=== PATIENT | male | born 1965 | race Caucasian/White ===

== ENCOUNTER → 2020-09-11 14:34 | Outpatient (CLI) | payer OTHER, SELFPAY ==
[2020-09-11 15:01] LABS: COVID19 -Nasal RAPID Negative (Negative)
== END ==
PROVIDERS: Visit Provider Student in an Organized Health Care Education/Training Program
DX: Z01.812 Encounter for preprocedural laboratory examination (principal); Z20.822 Contact with and (suspected) exposure to COVID-19
CPT/HCPCS: 87635

== ENCOUNTER 2020-09-14 09:43 | Day surgery (SDC) | payer OTHER, SELFPAY ==
[2020-09-07 08:01] VITALS: BMI 29.7
[2020-09-14] VITALS (20 sets, daily range): BP systolic 113–185; BP diastolic 62–111; PULSE 54–96; RESP 14–20; TEMP 35.4–36.9; O2SAT 90–100; BMI 29.7
[2020-09-14] MEDS: LACTATED RINGERS 1,000 ML 42 ML IV ×2 (10:25→13:29)
--- NOTE | 2020-09-14 10:42 | PM.PREOP ---
Pre-operative Note COVID-19 COVID-19 status: Negative Result date/Date tested (Pos, Neg/Pending): 09/12/20 Interval Note History & Physical reviewed/Exam performed by Physician: Yes Changes to H&P: No
[2020-09-14] MEDS: CEFAZOLIN 2 GM/100 ML FROZ.PIGGY IV ×2 (10:50→18:32)
--- NOTE | 2020-09-14 11:24 | SUR.OPER ---
Supine, head on gel donut. Arms padded with gel pads, tucked at sides, draw sheet secured with 2 towel clips at lower chest level. Towel roll between shoulders vertically, tape placed from shoulders to foot of bed. Silk tape to patients forehead to bed to secure patients head. Safety belt at thigh. Legs uncrossed, pillow under knees, gel pad under heels. Tape secured over lower leg
--- NOTE | 2020-09-14 13:45 | DI.RAD.S_ITS ---
PROCEDURE: XR CERVICAL SPINE 2V OR 3V INDICATIONS: C5-6. C6-7 ACDF TECHNIQUE: 3 view(s) of the cervical spine were acquired. COMPARISON: None. FINDINGS: 3 spot fluoroscopic intraoperative images demonstrating ACDF from the level of C5-C6 and C6-C7. Expected intraoperative alignment. Interbody cage grafts also noted. Dictated by: Bart Strauss M.D. on 09/14/2020 at 14:02 Approved by: Bart Strauss M.D. on 09/14/2020 at 14:03
[2020-09-14] MEDS: BUPIVACAINE 0.25% W/ EPI (PF) 10 ML VIAL 20 ML INJ (13:46)
--- NOTE | 2020-09-14 13:58 | PM.OP.1 ---
Operative Date/Time/Diagnoses Date of procedure: 09/14/20 Time of procedure: 10:38 Pre-op diagnosis: 1. C5-6, C6-7 spinal stenosis 2. C5-6, C6-7 spondylosis with radiculopathy Post-op diagnosis: same Procedure & Clinicians Procedure: 1. C5-6 C6-7 anterior cervical diskectomy and fusion 2. C5-6 C6-7 anterior interbody cage placement 3. C5-6 C6-7 anterior instrumentation with plate and screw placement in C5-C6 and C7 vertebrae 4. Utilization of microsurgical technique and operating microscope Same procedure as scheduled: Yes Indications: Patient has been having chronic neck pain and worsening cervical radiculopathy. Patient failed multiple conservative management with worsening pain weakness and numbness in her upper extremity. Patient has been having difficulty performing activity of daily living. After discussing risks benefits of treatment options, patient elected proceed with surgery. Surgeon: Jonathon Monson Papeterie Table Assembler: Beto Oates Click Yes if Unassisted: No Anesthesia Type: General Operative Notes Closure Type: primary Specimen(s): none sent Prosthetic devices, grafts, tissues, transplants, or devices: Globus extend plate, PEEK cages Applied: catheter Estimated Blood Loss (mL): 25 Blood products transfused: none Procedure in detail: Patient was seen in the preoperative area. Risks and benefits of the surgery was discussed with the patient. Operative consent was obtained and placed in the chart. Patient was then taken to the operative room. Prophylactic antibiotic was given less than 0.5 hr prior to skin incision. General anesthesia was administered. Patient was placed into a supine position on her radiolucent table. Bilateral shoulders were taped down to allow proper C-arm imaging. Anterior cervical area was prepped and draped in a sterile fashion. Time-out was performed at this time. Using lateral C-arm imaging, the level between C5 and C7 was identified and marked on patient's neck. A oblique incision from midline towards medial border of sternocleidomastoid muscle was made. The platysma muscle was incised in line with skin incision. Metzenbaum scissor was used to develop the plane between the medial border of sternocleidomastoid d and the strap muscles medially. The carotid sheath and its contents were identified and protected behind the hand-held retractor during the entire case. The plane between the carotid sheath and strap muscles was developed with Metzenbaum scissors. Dissection was made down to the level of the anterior cervical fascia. Longus colli muscle was incised on the anterior aspect of vertebral bodies bilaterally from C5-C7. Spinal needle was placed into the C5-6 disc space and confirmed with lateral C-arm imaging. Using microsurgical technique and operative microscope, anterior cervical diskectomy was performed at C5-6 and C6-7 level. This was done by removing the disc material, removing the anterior and posterior osteophytes posterior longitudinal ligaments along with performing bilateral foraminotomies at both levels. Patient was found to have severe central and foraminal stenosis at both levels. Patient's stenosis was fully decompressed after decompression was completed. After the diskectomy was completed, 2 anterior interbody cages were obtained. The cages were packed with globus via cell bone grafting material. One cage each along with the bone grafting material was then packed into the interbody spaces from C5-C7 with one cage into each interbody level. After the cages were placed, the anterior cervical plate was stabilized to the C5-C7 vertebrae using 2 screws at each each level. Total 6 screws were placed. After confirming placement of the hardware with AP and lateral C-arm imaging, the screws were locked into the plate using the locking mechanism and torque limiting screwdriver. After the hardware was placed and confirmed with AP and lateral C-arm imaging, the wound was irrigated with sterile normal saline. The platysma muscle and the subcutaneous tissue was closed with 2-0 Vicryl. The skin was closed with 4-0Monocryl and Steri-Strips. Patient tolerated the procedure well. Patient was transferred recovery room in stable condition. There were no complications. Complications: none Post-operative Condition: stable Disposition: PACU Plan for aftercare: Admit to inpatient hospital
--- NOTE | 2020-09-14 14:07 | SUR.PHASEI ---
Pt arrived with oral airway, diaphoretic, Dr. Roy stated this way normal for him..
[2020-09-14] MEDS: ALBUTEROL 2.5 MG/3 ML NEB (ADULT) INH (14:23)
--- NOTE | 2020-09-14 14:52 | SUR.PHASEI ---
Addendum entered by Kezia Wakefield R.N. 09/14/20 15:09: Blood gasabout to be attempted and pt spontaneously awoke, Dr. Titus returned to bedside, ok for blood gas not to be drawn as pt now awake. Original Note: RT treatment given for expiratory wheezing, wheezing resolved, pt not wakeful despite name calling and sternal rub, Dr. Titus called to bedside, ABG ordered, RT called and obtained blld.
[2020-09-14] MEDS: fentaNYL 100 MCG/2 ML INJ IV (15:07)
[2020-09-14] MEDS: OXYCODONE/ACETAMINOPHEN 5/325 TABLET 1 TAB PO ×2 (15:18→15:41)
--- NOTE | 2020-09-14 16:08 | SUR.PHASEI ---
Late entry: Once awake pt c/o pain to neck and shoulder areas. Medicated with fentanyl and percocet. Pt tolerated applesauce and water. Lungs remained clear with no more wheezes. Pt transported up to room 220 on nasal cannula 02 at 3/l. Pt left in stable condition, with CHASE Cherry. Bed down, locked SCD's on and call donis in reach.
[2020-09-14] MEDS: SODIUM CHLORIDE 0.9% 1,000 ML 100 ML IV (17:36)
--- NOTE | 2020-09-14 19:21 | PC.ADMIT ---
[address] [facility] [address] Admission Note: The patient,Kennedy Gan,55 y/o, was given written information regarding hospital policies, unit procedures and contact persons. Patient's smoking status: Former smoker. Vital Signs - 8 hr 09/14/20 13:58 09/14/20 14:03 09/14/20 14:08 Temperature 97.6 F Pulse Rate 74 73 73 Respiratory Rate 20 20 17 Blood Pressure 172/74 H 157/73 H 148/79 H Pulse Oximetry 93 90 L 90 L 09/14/20 14:14 09/14/20 14:23 09/14/20 14:28 Temperature 97.4 F L Pulse Rate 71 70 70 Respiratory Rate 18 16 15 Blood Pressure 157/77 H 143/83 H 154/92 H Pulse Oximetry 91 94 93 09/14/20 14:33 09/14/20 14:48 09/14/20 14:58 Temperature 97.2 F L Pulse Rate 68 72 96 H Respiratory Rate 16 16 15 Blood Pressure 152/88 H 160/77 H 167/105 H Pulse Oximetry 93 94 96 09/14/20 15:06 09/14/20 15:08 09/14/20 15:23 Temperature Pulse Rate 82 79 Respiratory Rate 17 18 Blood Pressure 161/99 H 185/89 H Pulse Oximetry 98 93 93 09/14/20 15:35 09/14/20 15:50 09/14/20 16:20 Temperature 97.8 F 97.0 F L 96.0 F L Pulse Rate 77 73 85 Respiratory Rate 18 16 16 Blood Pressure 169/89 H 159/102 H 144/84 H Pulse Oximetry 96 97 99 09/14/20 16:50 09/14/20 17:50 09/14/20 18:50 Temperature 95.7 F L 96.6 F L 96.8 F L Pulse Rate 54 L 75 60 Respiratory Rate 18 16 16 Blood Pressure 141/84 H 146/111 H 136/78 Pulse Oximetry [address] Gastelum admitted from PACU to arrived 1550. Patient drowsy but A/Ox4. Patient is on 3L O2 NC and has a soft cervical collar on. Original surgical dressing in place, C/D/I. CMS intact, positive distal pulses, good strength in BLE and BUE. Patient reports pain only with movement. Patient has been educated on log rolling and no heavy lifting. Patient able to swallow without difficulty. Patient's belongings in room, oriented to call light system.
[2020-09-14] MEDS: MAG HYDROX/ALUM/SIMETH 30 ML UDC PO (19:33)
[2020-09-14] MEDS: SENNOSIDES 8.6 MG TABLET 17.2 MG PO (20:22)
[2020-09-14] MEDS: DOCUSATE 100 MG CAPSULE PO (20:22)
[2020-09-14] MEDS: OXYCODONE IR 5 MG TABLET PO (20:22)
[2020-09-15] MEDS: OXYCODONE IR 5 MG TABLET PO ×3 (00:41→12:45)
[2020-09-15] MEDS: hydrOXYzine pamoate 25 MG CAPSULE PO ×2 (00:41→07:37)
[2020-09-15] MEDS: MAG HYDROX/ALUM/SIMETH 30 ML UDC PO (00:44)
--- NOTE | 2020-09-15 01:10 | PC.NURSE ---
Addendum entered by Citlali Gordon R.N. 09/15/20 03:30: again complaining of heartburn; states he should have taken my Prilosec yesterday morning. Has pantoprazole ordered for this a.m. at 0600 so given early per patient request. Addendum entered by Citlali Gordon R.N. 09/15/20 01:15: Does have some chronic tingling in both hands but states has improved since surgery. Original Note: patient is alert and oriented but using profanity when speaking about his pain stating oh fuck. Breath sounds CTA but is on oxygen at 1L/min per NC with sat of 97%; left on oxygen because he has sleep apnea and does not use a CPAP related to claustrophobia. Has intermittent harsh sounding non productive cough. Denies nausea but has heartburn so medicated with Maalox. BT present and is passing flatus. Voiding in toilet or using urinal; denies dysuria but reports chronic urgency but no incontinence. Is able to turn himself in bed. Up to bathroom with SBA and just slightly unsteady on feet initially. Dressing to anterior neck is CDI; wearing soft collar for comfort. Does state his throat is sort and he has had some difficulty with swallowing. Medicated with Oxycodone for 6/10 incisional pain and no noted coughing with drinking water; declines offer of ice pack. Wearing bilateral foot SCD's. Fall risk score is moderate and bed alarm is activated.
[2020-09-15] MEDS: CEFAZOLIN 2 GM/100 ML FROZ.PIGGY IV (02:49)
[2020-09-15] MEDS: PANTOPRAZOLE DR 20 MG TABLET PO (03:15)
[2020-09-15] MEDS: SODIUM CHLORIDE 0.9% 1,000 ML 100 ML IV (03:17)
[2020-09-15 03:22] VITALS: BP 141/92; PULSE 66; RESP 18; TEMP 36.8; O2SAT 96
[2020-09-15 07:22] VITALS: BP 127/78; PULSE 69; RESP 20; TEMP 37.1; O2SAT 97
[2020-09-15] MEDS: ACETAMINOPHEN 325 MG TABLET 650 MG PO (07:37)
--- NOTE | 2020-09-15 08:39 | OT.IP.EVAL ---
Current Diagnoses Other spondylosis with radiculopathy, cervical region (09/14/20) Spinal stenosis, cervical region (09/14/20) Surgery Performed Operation Date: 09/14/20 12:15 Actual Procedures p C5-6,C6-7 ACDF with anterior instrumentation - Jonathon Monson MD Past Medical History (Last Updated 09/07/20 @ 09:05 by Lynn Tinoco, RN) Depression HTN (hypertension) BEBETO (obstructive sleep apnea) Surgical History (Last Updated 09/07/20 @ 08:06 by Lynn Tinoco RN) Hx of appendectomy Hx of hernia repair Occupational Therapy Inpatient Evaluation/Re-Eval M1 PT/OT-IP Prior Functional Status Start: 09/15/20 08:41 Freq: NEEDED Status: Active Protocol: Document 09/15/20 08:41 [facility] (Rec: 09/15/20 08:58 [facility] [id number]) Medical Review Prior Functional Status Communication Independent Mobility and Gait Independent with no devices Activities of Daily Living and IADL's Completely with all ADL's , IADL's, and working as an recreational tech. Social History Household Members spouse Living Arrangements House Number of Floors (Floors) Two Floors Number of Stairs To Enter/Railing? 18 steps with left hand rail. Home Environment Standard Height Toilet,Tub/ Shower Home Equipment Shower Seat with Backrest,Hand Held Shower M2 OT-IP Current Condition Start: 09/15/20 08:41 Freq: Status: Active Protocol: Document 09/15/20 08:41 [facility] (Rec: 09/15/20 08:58 [facility] [id number]) Occupational Therapy Current Condition Current Condition Evaluation Date 09/15/20 Treatment Diagnosis Spinal stenosis, s/p C5-6, C6- 7 ACDF Post Operative Precautions Cervical Spine Precautions Soft Collar for Comfort,No Heavy Lifting,Log Roll M3 OT- IP Subjective and Pain Start: 09/15/20 08:41 Freq: Status: Active Protocol: Document 09/15/20 08:41 [facility] (Rec: 09/15/20 08:58 [facility] [id number]) OT- Subjective Occupational Therapy Visit Type Type Initial Evaluation Visit Start Time 08:25 Visit Stop Time 08:39 Total Visit Minutes 14 Occupational Therapy Visit Comments Patient Comments Pt agreed to get up. Patient/Caregiver Goals TO go home. OT Pain Assessment Pain When Pain Assessed At Rest Pain Present Pain Present Pain Reported Location neck Intensity 2 Scale Used Numeric (0 - 10) M4 OT- IP ADL's Start: 09/15/20 08:41 Freq: Status: Active Protocol: Document 09/15/20 08:41 [facility] (Rec: 09/15/20 08:58 [facility] [id number]) OT [id number] Comments OT Self-Feeding Comments Information given regarding swallowing after cervical sx, pt able to state good understanding. OT ADL-Grooming General Evaluation Grooming Ability Independent OT ADL-Oral Care General Eval Oral Care Ability Independent Comments Oral Care Comments Pt able to lean at his hips to spit into the sink. OT ADL-Dressing General Eval Lower Body Dressing Ability Standby Assistance Comments OT Dressing Comments Pt able to yanet/doff socks while seated. Pt able to independently readjust his soft neck collar. OT ADL-Toileting Comments OT Toileting Comments Pt has been independently using the toilet in the room. Educated pt to be mindful of his head positioning during hygiene needs. OT ADL-Bathing Comments OT Bathing Comments NOt performed. Pt states has a shower chair with back at home. M5 OT- IP IADL's Start: 09/15/20 08:41 Freq: Status: Active Protocol: Document 09/15/20 08:41 [facility] (Rec: 09/15/20 08:58 [facility] [id number]) OT-Instrumental Activities of Daily Living Home Safety Awareness Awareness of Need for Assistance at Home Good Awareness Ability to Problem Solve Emergency Able to Problem Solve Situations Medication Management Medication Management No Deficits Identified Money Management Money Management No Deficits Identified Meal Preparation Meal Preparation Comments to assist as needed. Program Manager Slp Program Manager Slp Comments to assist as needed. M6 OT- IP Functional Cognition Start: 09/15/20 08:41 Freq: Status: Active Protocol: Document 09/15/20 08:41 [facility] (Rec: 09/15/20 08:58 [facility] [id number]) Cognitive Factors Limiting Selfcare Function Cognitive Ability Level of Alertness Alert Patient Orientation Name,Age,Birthday,Month,Date, Year,Day of Week,Place, Situation Attention Span Ability Capable of Focused Attention, Capable of Sustained Attention Ability to Follow Commands Able to Follow Multi-Step Commands Memory Description No Deficits Noted Safety Awareness No Deficits Noted Problem Solving Ability No deficits Noted Executive Function Ability No Deficits Noted Cognitive Comments Cognitive Assessment Comments Pt appears intact with no cognitive deficits noted on OT eval. OT- Vision and Hearing OT- Hearing Assessment OT- Hearing Assessment WFL OT- Vision Assessment Visual Acuity Glasses For Reading M7 OT- IP Mobility and Balance Start: 09/15/20 08:41 Freq: Status: Active Protocol: Document 09/15/20 08:41 [facility] (Rec: 09/15/20 08:58 [facility] [id number]) OT- Bed Mobility Assessment Rolling Type of Rolling Roll to Left Supine to Sit Supine to Sit Assist Independent Sit to Supine Sit to Supine Assist Independent OT-Transfer Assessment Sit to and From Stand Sit to and from Stand Independent Transfers Transfer Ability Independent Technique Transfer Destination Bed,Chair Devices Transfer Assistive Devices None Comments Mobility Comments Pt independent in the room for all mobility needs. Pt states to be sleeping initially in the recliner at home as prior sleeps on the floor. OT- Balance Assessment Sitting Balance and Reactions Static Sitting Balance Ability Normal Dynamic Sitting Balance Ability Normal Standing Balance and Reactions Static Standing Balance Ability Normal Dynamic Standing Balance Ability Good M8 OT- IP Objective Assessments Start: 09/15/20 08:41 Freq: Status: Active Protocol: Document 09/15/20 08:41 [facility] (Rec: 09/15/20 08:58 [facility] [id number]) OT Gross Range of Motion Upper Extremity Range of Motion Assessment Within Functional Limits OT Strength Upper Extremity Strength Assessment Within Functional Limits OT-Muscle Tone Assessment Muscle Tone WNL Yes M9 OT- IP Assessment and Plan Start: 09/15/20 08:41 Freq: Status: Active Protocol: Document 09/15/20 08:41 [facility] (Rec: 09/15/20 08:58 [facility] [id number]) OT Summary Assessment and Plan Potential Rehabilitation Potential Excellent Analytic Complexity at Evaluation Low Summary OT Impairments Pain,Bathing Progress Towards Goals Progressing Toward Goals Assessment Summary Pt low complexity and doing well and able to follow all cervical precautions. Pt has to assist at home, step son a few miles away and friends to check on him daily. Pt looking to go home today. Goals Dressing Goal Independent Bathing Goal Independent Shower Transfer Goal Independent Days to Meet Goals 1 Frequency of Treatment Frequency Of Treatment Once a Day Treatment Plan OT Treatment Plan ADL Training,Functional Mobility,Patient/Family Education,Discharge Planning Other Treatment Recommendations and Next shower if still here Treatment Focus Discharge Recommendations OT Discharge Recommendations Home with Assistance Transportation Needs at Discharge Private Vehicle
[2020-09-15 08:58] VITALS: BP 157/99; PULSE 66; RESP 17; O2SAT 99
[2020-09-15 09:09] VITALS: BP 157/99; PULSE 66
[2020-09-15] MEDS: DOCUSATE 100 MG CAPSULE PO (09:09)
[2020-09-15] MEDS: FLUoxetine 20 MG CAPSULE PO (09:09)
[2020-09-15] MEDS: LOSARTAN 50 MG TABLET PO (09:09)
--- NOTE | 2020-09-15 09:10 | PT.IIE ---
Current Diagnoses Other spondylosis with radiculopathy, cervical region (09/14/20) Spinal stenosis, cervical region (09/14/20) Surgery Performed Operation Date: 09/14/20 12:15 Actual Procedures p C5-6,C6-7 ACDF with anterior instrumentation - Jonathon Monson MD Surgical History (Last Reviewed 09/15/20 @ 12:13 by Lwarence Johnson PA-C) Hx of appendectomy Hx of hernia repair Medical History (Last Reviewed 09/15/20 @ 12:13 by Lawrence Johnson PA-C) Depression HTN (hypertension) BEBETO (obstructive sleep apnea) Physical Therapy Inpatient Evaluation/Re-Eval M1 PT/OT-IP Prior Functional Status Start: 09/15/20 08:41 Freq: NEEDED Status: Active Protocol: Document 09/15/20 09:10 AB (Rec: 09/15/20 12:33 AB [id number]) Medical Review Prior Functional Status Medical History Reviewed Yes Communication able to make needs known Mobility and Gait pt stated that he is independent with all mobilities and ambulation without AD Social History Household Members spouse Living Arrangements House Number of Floors (Floors) Two Floors Number of Stairs To Enter/Railing? 1 step to enter 18 steps with R rail to get to bedroom level Home Environment Standard Height Toilet,Tub/ Shower Home Equipment Shower Seat with Backrest,Hand Held Shower Employment Status [employer] Employed Additional Social History Comment works as a photo technician: stated that he will be off work for ~ 2 months pt stated that he sleeps on the floor M2 PT-IP Current Condition Start: 09/15/20 12:21 Freq: NEEDED Status: Active Protocol: Document 09/15/20 09:10 AB (Rec: 09/15/20 12:33 AB [id number]) Physical Therapy Current Condition Current Condition Evaluation Date 09/15/20 Treatment Diagnosis s/p C5-6 C6-7 ACDF; difficulty in walking Onset Date 09/14/20 Precautions Cervical Spine Precautions Soft Collar for Comfort,No Heavy Lifting,Log Roll M3 PT-IP Subjective Start: 09/15/20 12:21 Freq: NEEDED Status: Active Protocol: Document 09/15/20 09:10 AB (Rec: 09/15/20 12:33 AB [email or web address]) Subjective Physical Therapy Visit Type Type Initial Evaluation Visit Start Time 09:10 Visit Stop Time 09:25 Total Visit Minutes 15 Number of RESTAURANT LINE COOK Visits 0 Physical Therapy Visit Comments Patient Comments pt is agreeable to do PT Therapy Pain Assessment Pain When Pain Assessed At Rest Pain Present Pain Present Pain Reported Location neck Intensity 2 Scale Used Numeric (0 - 10) Pain Management Techniques Modification of Treatment, Timing of Activity with Medications M4 PT-IP Mobility and Gait Start: 09/15/20 12:21 Freq: NEEDED Status: Active Protocol: Document 09/15/20 09:10 AB (Rec: 09/15/20 12:33 AB [id number]) PT-Bed Mobility Assessment Rolling Type of Rolling Log Rolling Level of Assist Independent Supine to Sit Supine to Sit Independent Sit to Supine Sit to Supine Independent PT-Transfer Assessment Sit to and From Stand Sit to and from Stand Independent Equipment Transfer Assistive Device None,Gait Belt Transfers Transfer Destination Chair Transfer Technique Stand Step Pivot Transfer Ability Level of Assist Independent Comments Mobility Comments reviewed cervical precautions. pt completed sit to stand from chair independent and transferred to bed independent without AD. demonstrated log roll bed mobility independent . agreed to walk in the hallway and completed ~ 125 ft independent without LOB. completed asceding steps without rails SBA. attempted descending without AD but with LOB requiring pt to hold on to R rail descending. pt stated that it is due to him not being able to look down to the step. pt repeated stair climbing x 2 more sets with pt ascending without rails/AD SBA but required use of R rail for descending. pt has R rail at home to get to 2nd level but room and hold has 1 step to get in/out of the house and pt can hold on to side of door for descending down step. pt also stated that spouse can assist him. pt ambulated back to his room independent. pt stated that he has been using his soft collar for ~ 6 months and knows how to manage collar. left pt sitting on chair. call light and table within reach. Gait Assessment Gait Gait Assistance Required: Independent Distance (Feet) 125 Able to Maintain Weight Bearing Status Yes During Gait Assistive Devices Assistive Device None Orthotic/Prosthetic Devices or Brace: Yes Factors Limiting Gait Function Factors Limiting Gait Function Limited Range of Motion,Pain, Poor Balance Comments Gait Comments pls refer to mobiltiy section for details Stair Climbing Assessment Evaluation Level of Assist On Stairs Standby Assistance Devices Stair Climbing Assistive Devices Right Railing Technique/Endurance Stair Climbing Direction Ascend and Descend Stair Climbing Technique Step Over Step Number of Steps Climbed 3 Query Text: Stair Climbing Set # Repetitions (reps) 3 Comments Stair Climbing Comments pls refer to mobility section for details PT-Balance Assessment Sitting Balance and Reactions Static Sitting Balance Ability Good Dynamic Sitting Balance Ability Good Standing Balance and Reactions Static Standing Balance Ability Good Dynamic Standing Balance Ability Good Device Used without AD M5 PT-IP Objective Assessments Start: 09/15/20 12:21 Freq: NEEDED Status: Active Protocol: Document 09/15/20 09:10 AB (Rec: 09/15/20 12:33 AB [id number]) Orientation Orientation/Cognition Level of Alertness Alert Orientation Name,Age,Birthday,Month,Date, Year,Day of Week,Place, Situation Language Function Ability No Deficits Noted Safety Awareness Understands Safety Issues Memory Description No Deficits Noted Gross Range of Motion Lower Extremity ROM Assessment Within Functional Limits Strength Lower Extremity Strength Assessment Within Functional Limits Coordination Assessment Gross Coordination Gross Coordination WNL Sensation Assessment Sensation Gross Sensation WNL M6 PT-IP Treatment Start: 09/15/20 12:21 Freq: NEEDED Status: Active Protocol: Document 09/15/20 09:10 AB (Rec: 09/15/20 12:33 AB [id number]) Physical Therapy Treatment Education Education Provided Precautions,Safety M7 PT-IP Assessment and Plan Start: 09/15/20 12:21 Freq: NEEDED Status: Active Protocol: Document 09/15/20 09:10 AB (Rec: 09/15/20 12:33 AB [id number]) PT Summary Assessment and Plan Potential Rehabilitation Potential Good Status of Condition at Evaluation Stable Summary Impairments Pain,ROM,Strength,Balance,Bed Mobility,Transfers,Gait, Activity Tolerance Assessment Summary pt us independent with bed mobility, transfers and ambulation without AD; requires SBA for stair climbing and pt will have his spouse to assist him at home. pt plans to go home today. pt may go home when medically stable. Goals Other Goals up/down 18 steps mod I using L rail ascending up/down 1 step without rails mod I Days to Meet Goals 3 Frequency of Treatment Frequency Of Treatment Twice a Day Treatment Plan Physical Therapy Treatment Plan Bed Mobility Training,Transfer Training,Gait Training, Therapeutic Exercise,Balance Retraining,Post Op Education, Discharge Planning,Hot or Cold Pack,Neuromuscular Re-ed, Coordination Retraining,Manual Therapy Precautions Cervical Spine Precautions Soft Collar for Comfort,No Heavy Lifting,Log Roll Recommendations To Nursing Amount of Assist Needed Standby Assistance Discharge Recommendations PT Discharge Recommendations Home with Assistance Transportation Needs at Discharge Private Vehicle
--- NOTE | 2020-09-15 10:31 | CM.DANOTE ---
DCP: Case received, EMR reviewed and met with patient. Introduced self and role. Was able to obtain information from patient regarding his baseline activity level prior to his surgery. DCP assessment completed with information currently available. Patient is a 55 year old male who admitted yesterday morning to the care of the orthopedic team. PCP: Dr. Mary Cruz. Payer: confirmed: [facility]. Patient came to the hospital via private vehicle for a surgical procedure. He had a cervical diskectomy/fusion secondary to history of spinal stenosis. According to notes and patient, he had sustained an injury at age 12 when he was active in gymnastics. He also exacerbated this when he lifted an [employer] awning. Met with patient in his room. He was sitting up in his chair with his neck brace, alert ad oriented. Patient resides in [place] with his spouse, Nathalie. He is independent at his baseline as far as activity and mobility. He is currently employed at [employer], and has been able to drive. P: DCP to continue to follow. He will be continuing to work with therapy team. Plan is for patient to go home when medically stable and cleared by Ana Gil RN/Quality Eng
[2020-09-15 11:34] VITALS: BP 144/78; PULSE 98; RESP 19; TEMP 36.6; O2SAT 98
--- NOTE | 2020-09-15 12:11 | PM.DS.1 ---
History of Present Illness History of Present Illness Date Patient Seen: 09/15/20 Time Patient Seen: 07:50 Chief complaint: *OPB* Cervical Fusion Anterior Narrative: Pain [id number]. No shortness of breath or chest pain. No nausea vomiting. No difficulty eating breakfast. Discharge Providers Provider Discharge Date: 09/15/20 Primary care physician: Doctor Noni MD Consults: 09/14/20 16:14 Consult to Occupational Therapy Evaluate & Treat Comment: Physician Instructions: Evaluate and treat Consult to Physical Therapy Evaluate & Treat Comment: Physician Instructions: Evaluate and Treat Discharge provider: Lawrence Johnson PA-C Summary Hospital Course Discharge Diagnosis: 1. C5-6, C6-7 spinal stenosis 2. C5-6, C6-7 spondylosis with radiculopathy Hospital Course: 1. C5-6 C6-7 anterior cervical diskectomy and fusion 2. C5-6 C6-7 anterior interbody cage placement 3. C5-6 C6-7 anterior instrumentation with plate and screw placement in C5-C6 and C7 vertebrae 4. Utilization of microsurgical technique and operating microscope Same procedure as scheduled: Yes Indications: Patient has been having chronic neck pain and worsening cervical radiculopathy. Patient failed multiple conservative management with worsening pain weakness and numbness in her upper extremity. Patient has been having difficulty performing activity of daily living. After discussing risks benefits of treatment options, patient elected proceed with surgery. Surgeon: Jonathon Monson Topography Technician: Beto Oates Click Yes if Unassisted: No Anesthesia Type: General Operative Notes Closure Type: primary Specimen(s): none sent Prosthetic devices, grafts, tissues, transplants, or devices: Globus extend plate, PEEK cages Applied: catheter Estimated Blood Loss (mL): 25 Blood products transfused: none Patient admitted to the hospital for the above-mentioned procedure. Patient consented to the same. Patient taken to the operating room underwent above-mentioned procedure on September 14, 2020. Patient back in his room and is in stable condition. Discharge home today in stable condition. Status at Discharge Cognitive/behavioral status at discharge: at baseline, oriented Functional status at discharge: independent ambulation Overall status at discharge: patient is progressing back to baseline Time Spent with Patient Time spent: Less than 30 minutes Exam Vital Signs (past 8 hours): - 09/15/20 07:22 09/15/20 08:58 09/15/20 09:09 Temperature 98.8 F Pulse Rate 69 66 66 Respiratory Rate 20 17 Blood Pressure 127/78 157/99 H 157/99 H Pulse Oximetry 97 99 09/15/20 11:34 Temperature 97.9 F Pulse Rate 98 H Respiratory Rate 19 Blood Pressure 144/78 H Pulse Oximetry 98 Oxygen Delivery Method Nasal Cannula Oxygen Flow Rate 0 Narrative Exam Narrative: Patient is sitting comfortably in bedside chair having breakfast. Neurovascular status is intact bilateral upper extremities. Dressing is Clean, dry, intact.. PFSH Medical History Depression HTN (hypertension) BEBETO (obstructive sleep apnea) Surgical History Hx of appendectomy Hx of hernia repair Social History household members: spouse Smoking Status: Former smoker alcohol intake: current Discharge Assessment & Plan Assessment and Plan Assessment: Patient progressing as expected. Plan of Treatment: Discharge home in stable condition. Discharge Plan Discharge Plan Patient Disposition: Home Discharge orders & Medications Discharge Orders: Discharge (Order); Ordered 09/15/20 Ordered By: Lawrence Johnson Prescriptions: New sennosides [senna] 8.6 mg Tablet 17.2 mg PO BEDTIME Qty: 20 RF: 0 acetaminophen 325 mg Tablet 650 mg PO Q6HR PRN (Reason: Pain, Mild (1-3)) Qty: 60 RF: 0 oxycodone 5 mg Tablet 5 mg PO Q3HR PRN (Reason: Pain, Moderate (4-6)) Qty: 60 RF: 0 Continued aspirin 81 mg Tablet,Delayed Release (Dr/Ec) 81 mg PO DAILY RF: 0 omeprazole 20 mg Capsule,Delayed Release(Dr/Ec) 20 mg PO DAILY RF: 0 fluoxetine 20 mg capsule 20 mg PO DAILY RF: 0 losartan 50 mg tablet 50 mg PO DAILY RF: 0 Follow up/Referrals: Jonathon Monson MD [Physician] - (2 weeks ) MisDoctor de la vega MD [Primary Care Provider] - Diet/Activity/Treatments Diet: Diet as Tolerated Activity: Limit bending, twisting, lifting Other treatments: Soft collar for comfort Skin/Wound/Dressing Care Report to your healthcare provider any signs of infection, such as:: chills, fever, increased pain, unusual drainage and unusual redness Dressing: Keep dressing clean and dry Visit Report/Discharge Packet Instructions: DI for Anterior Cervical Discectomy and Fusion Stand Alone Forms: Surgery Discharge Discharge Data Primary Care Provider: Miscellaneous,Doctor Attending Provider: Jonathon Monson
--- NOTE | 2020-09-15 13:02 | PC.NURSE ---
Pt A&Ox3. V.S.S. afebrile on RA. LS CTA, using IS getting max result. Soft collar in placed. Anterior neck dressing C/D/I.Reports pain controlled well with PRN oxycodone 5mg. Evaluated by PT, ambulating independently in room. MD at bedside this a.m. assessing patient and cleared for discharge home. Pt verbalizes understanding of activity restrictions, keeping dressing dry, scheduling a follow up appointment with ortho MD in 2 weeks, and medications. Pt is escorted by HAND STAP[employer]ER going via w/chair to private car driven by with all of his belongings.
== END 2020-09-15 13:08 | disposition home or self-care (01) ==
LOC: OR 09:52 → AC 09:53
PROVIDERS: Referring Provider Orthopaedic Surgery Orthopaedic Surgery of the Spine; Visit Provider Orthopaedic Surgery Orthopaedic Surgery of the Spine
PROC: (CPT 22551; principal; 2020-09-14 12:15)
DX: M48.02 Spinal stenosis, cervical region (principal); M47.22 Other spondylosis with radiculopathy, cervical region; M25.78 Osteophyte, vertebrae; G47.30 Sleep apnea, unspecified; I10 Essential (primary) hypertension; F32.9 Major depressive disorder, single episode, unspecified
CPT/HCPCS: 22551; 22853 ×2; 22552; 72040; 76000; 82962; 97161; 97165; C1776; J0690; J1100; J1170; J2250; J2405; J2704; J3010; J7613

== ENCOUNTER 2022-01-31 10:01 | Inpatient (IN) | payer OTHER, SELFPAY ==
[2020-09-14 16:19] VITALS: BMI 29.7
[2022-01-18 13:46] VITALS: BMI 28.1
[2022-01-31] VITALS (19 sets, daily range): BP systolic 135–188; BP diastolic 60–112; PULSE 53–88; RESP 9–20; TEMP 36.2–37.4; O2SAT 91–98; BMI 28.1
[2022-01-31 10:55] LABS: COVID19 -Nasal RAPID Negative (Negative)
--- NOTE | 2022-01-31 11:04 | PM.PREOP ---
Pre-operative Note COVID-19 COVID-19 status: Negative Result date/Date tested (Pos, Neg/Pending): 01/30/22 Criteria for continued procedure: Expected advancement of disease process, Possibility delay results in more complex future surgery or treatment, Increased loss of function, Continuing or worsening of significant or severe pain, Deterioration of the patient's condition or overall health and Delay expected to result in less-positive ultimate med/surg outcome Interval Note History & Physical reviewed/Exam performed by Physician: Yes Changes to H&P: No
[2022-01-31] MEDS: ACETAMINOPHEN 325 MG TABLET 975 MG PO (11:11)
[2022-01-31] MEDS: PREGABALIN 75 MG CAPSULE PO (11:11)
[2022-01-31] MEDS: LACTATED RINGERS 1,000 ML 42 ML IV ×2 (11:11→14:49)
[2022-01-31] MEDS: CEFAZOLIN 2 GM/100 ML PREMIX 100 ML IV ×2 (11:45→19:52)
[2022-01-31] MEDS: BUPIVACAINE LIPOSOME 266 MG/20 ML VIAL INJ (12:22)
[2022-01-31] MEDS: BUPIVACAINE 0.25% (PF) 30 ML, EPINEPHrine 0.3 MG INJ (12:22)
--- NOTE | 2022-01-31 12:30 | SUR.OPER ---
Supine, head on gel donut. Arms padded with gel pads, tucked at sides, towel roll under shoulders. Safety belt at thigh. Legs uncrossed.
--- NOTE | 2022-01-31 14:39 | PM.OP.1 ---
Operative Date/Time/Diagnoses Date of procedure: 01/31/22 Time of procedure: 12:00 Pre-op diagnosis: 1. C4-5, C7-T1 spinal stenosis with radiculopathy 2. History of C5-7 ACDF with retained hardware Post-op diagnosis: same Procedure & Clinicians Procedure: 1. C4-5, C7-T1 anterior cervical discectomy and fusion 2. C4-5, C7-T1 anterior interobody cage placement. 3. C5-7 anterior instrumentation removal with exploration of fusion 4. C4-T1 anterior instrumentation with plate and screw placement. 5. Utilization of microsurgical technique and operating microscope Same procedure as scheduled: Yes Indications: Patient has been having chronic neck pain and worsening cervical radiculopathy. 6 month. Patient had previous cervical fusion with some significant pain relief events and promotions assistant doing well until the last Patient failed multiple conservative management with worsening pain weakness and numbness in his upper extremity. Patient has been having difficulty performing activity of daily living. After discussing risks benefits of treatment options, patient elected proceed with surgery. Surgeon: Jonathon Monson Vibration Technician: Lawrence Johnson Click Yes if Unassisted: No Anesthesia Type: General Operative Notes Closure Type: primary Specimen(s): none sent Prosthetic devices, grafts, tissues, transplants, or devices: Globus Extend Plate and screws, Titanium cages Applied: catheter Estimated Blood Loss (mL): 10 Blood products transfused: none Procedure in detail: Patient was seen in the preoperative area. Risks and benefits of the surgery was discussed with the patient. Operative consent was obtained and placed in the chart. Patient was then taken to the operative room. Prophylactic antibiotic was given less than 0.5 hr prior to skin incision. General anesthesia was administered. Patient was placed into a supine position on her radiolucent table. Bilateral shoulders were taped down to allow proper C-arm imaging. Anterior cervical area was prepped and draped in a sterile fashion. Time-out was performed at this time. Using lateral C-arm imaging, the level between C4 and T1 was identified and marked on patient's neck. A oblique incision from midline towards medial border of sternocleidomastoid muscle was made. The platysma muscle was incised in line with skin incision. Metzenbaum scissor was used to develop the plane between the medial border of sternocleidomastoid d and the strap muscles medially. The carotid sheath and its contents were identified and protected behind the hand-held retractor during the entire case. The plane between the carotid sheath and strap muscles was developed with Metzenbaum scissors. Dissection was made down to the level of the anterior cervical fascia. Longus colli muscle was incised on the anterior aspect of vertebral bodies bilaterally from C4-T1. At this time the previously placed hardware rest exposed from C5-7. Screwdriver was used to unlock the screws from the plate. Screwdriver was then used to remove the screws from the vertebral bodies. All the screws had good purchase. After the screw was removed the plate was then removed from the anterior portion of vertebral bodies. The fusion bed was then inspected at this time. The fusion was solid at both C5-6 and C6-7 level. Using microsurgical technique and operative microscope, anterior cervical diskectomy was performed at C4-5 C7-T1 level. This was done by removing the disc material, removing the anterior and posterior osteophytes posterior longitudinal ligaments along with performing bilateral foraminotomies at both levels. Patient was found to have severe central and foraminal stenosis at both levels. Patient's stenosis was fully decompressed after decompression was completed. After the diskectomy was completed, two static anterior interbody cages were obtained. The cages were packed with DBM bone grafting material. One cage each along with the bone grafting material was then packed into the interbody spaces at C4-5, C7-T1 with one cage placed into the C4-5 level and one into the C7-T1 level. After the cages were placed, the anterior cervical plate was stabilized to the C4-T1 vertebrae using 2 screws at each each level. Total 10 screws were placed. After confirming placement of the hardware with AP and lateral C-arm imaging, the screws were locked into the plate using the locking mechanism and torque limiting screwdriver. After the hardware was placed and confirmed with AP and lateral C-arm imaging, the wound was irrigated with sterile normal saline. The platysma muscle and the subcutaneous tissue was closed with 2-0 Vicryl. The skin was closed with 4-0 Monocryl and Steri-Strips. A ELIDIA drain was placed deep to the platysma muscle and was sewn and through the skin. Patient tolerated the procedure well. Patient was transferred recovery room in stable condition. There were no complications. Neuro monitoring was used throughout the procedure and patient's neurologic status was stable throughout the entire procedure. Complications: none Post-operative Condition: stable Disposition: PACU Plan for aftercare: Admit to inpatient hospital
--- NOTE | 2022-01-31 14:56 | DI.RAD.S_ITS ---
PROCEDURE: XR CERVICAL SPINE 2V OR 3V INDICATIONS: C4-5, C7-T1 TECHNIQUE: 2 view(s) of the cervical spine were acquired. COMPARISON: [facility], RF, CERVICAL SPINE INTERLAMINAR, 09/06/2021, 15:12. [facility], CR, XR CERVICAL SPINE 2V OR 3V, 09/14/2020, 11:15. FINDINGS: Fluoroscopic intraoperative images were obtained for anterior fusion from C3 to the cervicothoracic junction. Interbody spacers are in place. IMPRESSION: Intraoperative fluoroscopic images for cervical fusion hardware placement. Please see operative report for full details. Dictated by: Zeb Lopez M.D. on 01/31/2022 at 17:11 Approved by: Zeb Lopez M.D. on 01/31/2022 at 17:13
[2022-01-31] MEDS: HYDROMORPHONE 2 MG INJ IV (15:22)
[2022-01-31] MEDS: OXYCODONE IR 5 MG TABLET PO (15:23)
--- NOTE | 2022-01-31 15:40 | SUR.PHASEI ---
Called Dr Titus and reported BP 180/93. No orders given.
[2022-01-31] MEDS: LABETALOL 20 MG/4 ML SYRINGE 10 MG IV (15:52)
[2022-01-31] MEDS: SODIUM CHLORIDE 0.9% 1,000 ML 100 ML IV (16:50)
[2022-01-31] MEDS: OXYCODONE IR 5 MG TABLET 10 MG PO ×2 (19:52→23:37)
[2022-01-31] MEDS: SENNOSIDES 8.6 MG TABLET 17.2 MG PO (20:04)
[2022-01-31] MEDS: DOCUSATE 100 MG CAPSULE PO (20:04)
[2022-01-31] MEDS: hydrOXYzine pamoate 25 MG CAPSULE PO (23:37)
--- NOTE | 2022-02-01 01:31 | PC.NURSE ---
Addendum entered by Mehdi Braswell R.N. 02/01/22 04:41: Pt states that he does have a high pain tolerance and does not want to get attached on oxycodone. Rn advised it is good to stay on top of pain to manage for now, but hesitancy is good as well. Addendum entered by Medhi Braswell R.N. 02/01/22 04:40: Pt ambulating very well to the bathroom with another large output of urine. Original Note: Pt tolerating pain well with oxycodone and vistaril. At around 2330 [employer] bladder scanned 370ml urine as requested by nurse as pt had not urinated yet. RN suggested to pt to stand at bedside w/ assistance to urinate, pt had output of 400ml at this time. Pt has been sleeping well since. Dressing on neck is CDI. Pt is cooperative and joking with staff. Hoping to go home tomorrow.
[2022-02-01 03:20] VITALS: BP 115/52; PULSE 60; RESP 18; TEMP 36.3; O2SAT 97
[2022-02-01] MEDS: CEFAZOLIN 2 GM/100 ML PREMIX 100 ML IV (03:20)
[2022-02-01] MEDS: OXYCODONE IR 5 MG TABLET 10 MG PO ×2 (04:11→08:09)
[2022-02-01] MEDS: PANTOPRAZOLE DR 20 MG TABLET PO (05:54)
--- NOTE | 2022-02-01 07:35 | PM.DS.1 ---
History of Present Illness History of Present Illness Date Patient Seen: 02/01/22 Time Patient Seen: 07:35 Chief complaint: Neck pain Narrative: Patient's neck pain is mild. Denies fever or chills. No nausea or vomiting. Patient has been up to the bathroom. Otherwise without complaints. Discharge Providers Provider Date of admission: 01/31/22 10:01 Discharge Date: 02/01/22 Consults: 01/18/22 14:16 Consult to Anesthesiology Routine Comment: Consulting Provider: Anesthesiologist Reason for consultation: SENDY bird/surgeon office requesting re: Prolonged S1 heart sound 01/31/22 16:12 Consult to Occupational Therapy Evaluate & Treat Comment: Physician Instructions: Evaluate and treat Consult to Physical Therapy Evaluate & Treat Comment: Physician Instructions: Evaluate and Treat Discharge provider: Lawrence Johnson PA-C Summary Hospital Course Discharge Diagnosis: 1. C4-5, C7-T1 spinal stenosis with radiculopathy 2. History of C5-7 ACDF with retained hardware Hospital Course: 1. C4-5, C7-T1 anterior cervical discectomy and fusion 2. C4-5, C7-T1 anterior interobody cage placement. 3. C5-7 anterior instrumentation removal with exploration of fusion 4. C4-T1 anterior instrumentation with plate and screw placement. 5. Utilization of microsurgical technique and operating microscope Same procedure as scheduled: Yes Indications: Patient has been having chronic neck pain and worsening cervical radiculopathy.? 6 month. Patient had previous cervical fusion with some significant pain relief licensed physical therapy assistant doing well until the last Patient failed multiple conservative management with worsening pain weakness and numbness in his upper extremity.? Patient has been having difficulty performing activity of daily living.? After discussing risks benefits of treatment options, patient elected proceed with surgery. Surgeon: Jonathon Monson [employer] Research Engineer: Lawrence Johnson Click Yes if Unassisted: No Anesthesia Type: General Operative Notes Closure Type: primary Specimen(s): none sent Prosthetic devices, grafts, tissues, transplants, or devices: Globus Extend Plate and screws,? Titanium cages Applied: catheter Estimated Blood Loss (mL): 10 Blood products transfused: none Patient admitted to the hospital for the above-mentioned procedure. Patient consented to the same. Patient underwent surgery on January 31, 2022. Patient back in his room recovering well and is in stable condition. Patient will mobilize with physical therapy. Limit bending, twisting, lifting. Soft collar for comfort. Multimodal pain management. Discharge home today in stable condition after physical therapy. Exam Vital Signs (past 8 hours): - 02/01/22 03:20 Temperature 97.3 F L Pulse Rate 60 Respiratory Rate 18 Blood Pressure 115/52 L Pulse Oximetry 97 Oxygen Flow Rate 0 Oxygen Delivery Method Room Air Oxygen Flow Rate 0 Narrative Exam Narrative: 56-year-old male resting comfortably in bed in no apparent distress. Soft collar is in place. Dressing is Clean, dry, intact.. Motor functions intact bilateral upper extremities. Const General: cooperative and comfortable Objective Labs Labs: Laboratory Results - last 24 hr 01/31/22 10:17 SARS-CoV-2 (PCR) Negative PFSH Medical History Depression HTN (hypertension) BEBETO (obstructive sleep apnea) Surgical History Hx of appendectomy Hx of fusion of cervical spine (09/14/20) Hx of hernia repair Social History household members: spouse Smoking Status: Former smoker alcohol intake: current Discharge Assessment & Plan Assessment and Plan Assessment: Patient progressing as expected Plan of Treatment: Mobilize with physical therapy Multimodal pain management Soft collar for comfort, limit bending, twisting, lifting Discharge home today in stable condition. Discharge Plan Discharge Plan Patient Disposition: Home Discharge orders & Medications Prescriptions: New acetaminophen 325 mg Tablet 650 mg PO Q6HR PRN (Reason: Pain, Mild (1-3)) Qty: 60 0RF oxycodone 5 mg Tablet 10 mg PO Q3HR PRN (Reason: Pain, Severe (7-10)) Qty: 60 0RF hydroxyzine pamoate 25 mg Capsule 25 mg PO Q4HR PRN (Reason: Nausea And Vomiting) Qty: 20 0RF Continued aspirin 81 mg Tablet,Delayed Release (Dr/Ec) 81 mg PO DAILY omeprazole 20 mg Capsule,Delayed Release(Dr/Ec) 20 mg PO DAILY fluoxetine 20 mg capsule 20 mg PO DAILY losartan 50 mg tablet 50 mg PO DAILY Discontinued oxycodone 5 mg Tablet 5 mg PO Q3HR PRN (Reason: Pain, Moderate (4-6)) Qty: 60 0RF Label Comments: has not taken for 6 months Follow up/Referrals: Jonathon Monson MD [Physician] - (2 weeks) Diet/Activity/Treatments Diet: Diet as Tolerated Activity: Limit bending, twisting, lifting, soft collar for comfort Skin/Wound/Dressing Care Report to your healthcare provider any signs of infection, such as:: chills, fever, increased pain, unusual drainage and unusual redness Dressing: Keep dressing clean and dry Visit Report/Discharge Packet Instructions: DI for Prescription Opioid Use, DI for Anterior Cervical Discectomy and Fusion Stand Alone Forms: Surgery Discharge Quality VTE Deep Vein Thrombosis/Pulmonary Embolism Present on Admission: No
[2022-02-01 07:56] VITALS: BP 140/78; PULSE 53; RESP 17; TEMP 36.7; O2SAT 97
[2022-02-01] MEDS: LOSARTAN 50 MG TABLET PO (08:09)
[2022-02-01] MEDS: FLUoxetine 20 MG CAPSULE PO (08:09)
[2022-02-01] MEDS: DOCUSATE 100 MG CAPSULE PO (08:09)
--- NOTE | 2022-02-01 08:25 | CM.DANOTE ---
DCP: Case received, EMR reviewed and met with patient. Introduced self and role. Was able to obtain information regarding patient's baseline activity level prior to his surgery. DCP assessment completed with information currently available. Patient is a 56 year old male who admitted yesterday morning to the care of the orthopedic team. PCP: Dr. Mary Cruz. Payer: [facility]. Patient came to the hospital via private vehicle for a surgical procedure. Patient had C4-5, C7-T1 anterior discectomy and fusion. Patient has history of spinal stenosis with radiculopathy. Met with patient in his room. He was sitting up in bed, starting to eat his breakfast, cervical collar in place, was complaining of pain. He is alert and oriented, and resides in [place] with spouse, Nathalie. Confirmed his primary care provider is Dr. Cruz. He is independent at his baseline, and is employed at [email or web address]. P: DCP to continue to follow. Patient will be working with therapy. He should be able to go home when he is deemed medically stable. Jessenia Gil RN/Hand Trucker Discharge Planning/Care Management CM Discharge Assessment Start: 02/01/22 08:15 Freq: Status: Active Protocol: Document 02/01/22 08:15 (Rec: 02/01/22 08:19 [id number]) Discharge Planning Assessment Assigned Extension Service Specialist Jessenia Gil RN/Hand Trucker Advance Directives? No History Provided By Patient,Medical Record Prior Living Arrangements House Household Members spouse Type of transporation used prior to Drives own vehicle admit Independent with ADL's Yes Is patient alert and oriented? Yes Caregiver for Another No Barriers to Discharge No Discharge Plan Home Transportation Arrangement Spouse Referrals Initiated None needed Whiteboard Updated in Patient Room with Yes name and ext. # of Extension Service Specialist Review Status In Process Next Review Type Continued Stay Review Pre-Anesthesia Assessment Start: 01/18/22 13:46 Freq: Status: Active Protocol: Document 01/18/22 13:46 CAB (Rec: 01/18/22 14:16 CAB [id number]) Pre-Anesthesia Assessment PAC Comment Unable to reach patient for scheduled phone assessment, chart review only Patient Information Reviewed Via Chart Review Comment Outisde labs/ECG scanned, COVID screen @ [facility] not identified Primary Care Provider Sander Seen Specialist in Last 12 Months Yes Specialist Seen Orthopedist Primary Language Georgian Preferred Language Georgian Pinion Staker Required No Height 5 ft 7 in Weight 180 lb Body Mass Index (BMI) 28.1 Hx Anesthesia Reactions No: Morphine causes throat to close Hx Family Anesthesia Reaction No Hx Malignant Hyperthermia No Hx Blood Transfusion Reaction No Anesthesia Review Requested Yes: SENDY w/surgeon office requesting re: Prolonged S1 heart sound Field Education Director No alcohol intake current alcohol intake frequency 0-2 drinks per day Smoking Status Former smoker how long ago did patient quit smoking 30+ years Substance Use Type marijuana Pain Present Pain Reported Musculoskeletal Symptoms Numbness,Radiating Pain into Limb,Tingling History of Falling (Recent or History of No ) Patient is completely paralyzed or No completely immobile Mental Status Oriented to own ability Hx Sleep Apnea Yes: CPAP compliance unknown Currently Taking a Beta Sissy No Cardiac Testing No Hx Pacemaker/ICD No Pacemaker Rep Required? No Urinary Catheter Present No Hx Urinary Self Catheterization No Diabetes No Presence of External or Internal Medical Yes: Cervical spine hardware Devices Marital Status Lives With spouse Patient Discharge Plan Description Return Home Do You Have Any Spiritual Beliefs That No May Affect Your HC Choices? Do You Have Any Cultural Practices That No May Affect Your HC Choices? Advance Directives? No
--- NOTE | 2022-02-01 08:31 | PC.NURSE ---
Patient complaining of 7/10 pain to his anterior neck from cervical surgery. Given 10mg of oxycodone and this has helped him. Dressing is cdi with soft collar in place. He did not want his breakfast as it was hard to chew. Patient given 2 chocolate ensures and he is doing well with these.
--- NOTE | 2022-02-01 08:40 | OT.IP.EVAL ---
Current Diagnoses Spinal stenosis, cervical region (01/31/22) Arthrodesis status (01/31/22) Surgery Performed Operation Date: 01/31/22 12:15 Actual Procedures p C4-5, C7-T1 ACDF w. anterior instrumentation with C5-7 anterior instrumentation removal & re-insertion - Jonathon Monson MD Past Medical History (Last Reviewed 02/01/22 @ 07:37 by Lawrence Johnson PA-C) Depression HTN (hypertension) BEBETO (obstructive sleep apnea) Surgical History (Last Reviewed 02/01/22 @ 07:37 by Lawrence Johnson PA-C) Hx of appendectomy Hx of fusion of cervical spine (09/14/20) Hx of hernia repair Occupational Therapy Inpatient Evaluation/Re-Eval M1 PT/OT-IP Prior Functional Status Start: 02/01/22 08:43 Freq: NEEDED Status: Active Protocol: Document 02/01/22 08:40 [facility] (Rec: 02/01/22 08:57 [facility] [id number]) Medical Review Prior Functional Status Communication independent Mobility and Gait no devices used Activities of Daily Living and IADL's increased time with ADL's and IADl needs due to pain Social History Household Members spouse Living Arrangements House Number of Floors (Floors) Two Floors Number of Stairs To Enter/Railing? 1 step to get in and 18 steps with right rail to go upstairs to the bedroom. Home Environment Standard Height Toilet,Tub/ Shower Home Equipment Shower Seat with Backrest,Hand Held Shower Additional Social History Comment Pt has an adjustable bed at home. M2 OT-IP Current Condition Start: 02/01/22 08:43 Freq: Status: Active Protocol: Document 02/01/22 08:40 [facility] (Rec: 02/01/22 08:57 [facility] [id number]) Occupational Therapy Current Condition Current Condition Evaluation Date 02/01/22 Treatment Diagnosis S/p C4-5, C7-T1 ACDF Diagnosis Onset Date 01/31/22 Post Operative Precautions Cervical Spine Precautions Soft Collar for Comfort,No Heavy Lifting,Log Roll M3 OT- IP Subjective and Pain Start: 02/01/22 08:43 Freq: Status: Active Protocol: Document 02/01/22 08:40 [facility] (Rec: 02/01/22 08:57 [facility] [id number]) OT- Subjective Occupational Therapy Visit Type Type Initial Evaluation Visit Start Time 08:00 Visit Stop Time 08:40 Total Visit Minutes 20 Notes Pt seen for split treatment as having breakfast and awaiting pain medications to be given. Occupational Therapy Visit Comments Patient Comments Pt agreed to get dressed and not wanting to shower at this time. Patient/Caregiver Goals TO go home. OT Pain Assessment Pain When Pain Assessed At Rest Pain Present Pain Present Pain Reported Location neck Intensity 8 Scale Used Numeric (0 - 10) M4 OT- IP ADL's Start: 02/01/22 08:43 Freq: Status: Active Protocol: Document 02/01/22 08:40 [facility] (Rec: 02/01/22 08:57 [facility] [id number]) OT TES-Bmvc-Hutqeky General Evaluation Areas Needing Assistance Cutting Food Comments OT Self-Feeding Comments Initially pt having pain 8/10 and needing assist to cut his food. Pt then decided the sausage was too hard and not wanting to eat anymore. Nursing able to give pt protein drinks. Able to go over suggestions for eating while upright , eat softer and cold foods, and take his time. OT ADL-Grooming General Evaluation Grooming Ability Independent Areas Needing Assistance Retrieving/Set-up of Grooming Items OT ADL-Oral Care General Eval Oral Care Ability Independent Areas of Assistance Retrieving/Set-Up of Items Comments Oral Care Comments Pt able to follow hinging at his hips to best follow his cervical precautions. OT ADL-Dressing General Eval Upper Body Dressing Ability Independent Lower Body Dressing Ability Standby Assistance Comments OT Dressing Comments Pt able to yanet/doff his soft collar independently. SBA while doing pants management needs. OT ADL-Toileting Comments OT Toileting Comments Pt not having to go, pt states has already been using the toilet on his own. OT ADL-Bathing Comments OT Bathing Comments Pt states to shower at home. M5 OT- IP IADL's Start: 02/01/22 08:43 Freq: Status: Active Protocol: Document 02/01/22 08:40 [facility] (Rec: 02/01/22 08:57 [facility] [id number]) OT-Instrumental Activities of Daily Living Home Safety Awareness Awareness of Need for Assistance at Home Good Awareness Ability to Problem Solve Emergency Able to Problem Solve Situations Medication Management Medication Management No Deficits Identified Money Management Money Management No Deficits Identified Meal Preparation Meal Preparation Comments Pt has a supportive to be able to assist as needed. Cookie Breaker Cookie Breaker Comments Pt has a supportive to be able to assist as needed. M6 OT- IP Functional Cognition Start: 02/01/22 08:43 Freq: Status: Active Protocol: Document 02/01/22 08:40 [facility] (Rec: 02/01/22 08:57 [facility] [id number]) Cognitive Factors Limiting Selfcare Function Cognitive Ability Level of Alertness Alert Patient Orientation Name,Age,Birthday,Month,Date, Year,Day of Week,Place, Situation Ability to Follow Commands Able to Follow Multi-Step Commands Safety Awareness No Deficits Noted Problem Solving Ability No deficits Noted Executive Function Ability No Deficits Noted Cognitive Comments Cognitive Assessment Comments Pt intact but just needing initial reminders to do log rolling instead on coming up into long sitting during bed mobility needs. OT- Vision and Hearing OT- Vision Assessment Visual Acuity Glasses For Reading Visual Attentiveness WFL Occular Pursuits WFL M7 OT- IP Mobility and Balance Start: 02/01/22 08:43 Freq: Status: Active Protocol: Document 02/01/22 08:40 [facility] (Rec: 02/01/22 08:57 [facility] [id number]) OT- Bed Mobility Assessment Rolling Level of Assistance Independent Supine to Sit Supine to Sit Assist Standby Assistance OT-Transfer Assessment Sit to and From Stand Sit to and from Stand Standby Assistance Transfers Transfer Ability Standby Assistance Technique Transfer Destination Bed,Chair Transfer Technique Stand Step Pivot Devices Transfer Assistive Devices None OT- Balance Assessment Sitting Balance and Reactions Static Sitting Balance Ability Normal Dynamic Sitting Balance Ability Normal Standing Balance and Reactions Static Standing Balance Ability Good Dynamic Standing Balance Ability Good M8 OT- IP Objective Assessments Start: 02/01/22 08:43 Freq: Status: Active Protocol: Document 02/01/22 08:40 [facility] (Rec: 02/01/22 08:57 [facility] [id number]) OT-Muscle Tone Assessment Muscle Tone WNL Yes M9 OT- IP Assessment and Plan Start: 02/01/22 08:43 Freq: Status: Active Protocol: Document 02/01/22 08:40 [facility] (Rec: 02/01/22 08:57 [facility] [id number]) OT Summary Assessment and Plan Potential Rehabilitation Potential Excellent Analytic Complexity at Evaluation Low Summary OT Impairments Pain Progress Towards Goals Progressing Toward Goals Assessment Summary Pt low complexity and main barrier is pain and so far doing well and able to do ADl' s on his own. Pt needing reminders to do log rolling versus sit upright to long sitting for bed mobility needs . Pt looking to go home with his to assist as needed. Goals Bathing Goal Independent Toilet Transfer Goal Independent Shower Transfer Goal Independent Patient/Caregiver Education Goal Demonstrate Post-Op Precautions Days to Meet Goals 1 Frequency of Treatment Frequency Of Treatment Once a Day Treatment Plan OT Treatment Plan ADL Training,Functional Mobility,Patient/Family Education,Discharge Planning Discharge Recommendations OT Discharge Recommendations Home with Assistance Transportation Needs at Discharge Private Vehicle
--- NOTE | 2022-02-01 09:25 | PT.IIE ---
Current Diagnoses Spinal stenosis, cervical region (01/31/22) Arthrodesis status (01/31/22) Surgery Performed Operation Date: 01/31/22 12:15 Actual Procedures p C4-5, C7-T1 ACDF w. anterior instrumentation with C5-7 anterior instrumentation removal & re-insertion - Jonathon Monson MD Surgical History (Last Reviewed 02/01/22 @ 07:37 by Lawrence Johnson PA-C) Hx of appendectomy Hx of fusion of cervical spine (09/14/20) Hx of hernia repair Medical History (Last Reviewed 02/01/22 @ 07:37 by Lawrence Johnson PA-C) Depression HTN (hypertension) BEBETO (obstructive sleep apnea) Physical Therapy Inpatient Evaluation/Re-Eval M1 PT/OT-IP Prior Functional Status Start: 02/01/22 11:59 Freq: NEEDED Status: Discharge Protocol: Document 02/01/22 09:25 [facility] (Rec: [facility]01/22 12:08 [facility] Medical Review Prior Functional Status Communication able to make needs known Mobility and Gait pt stated that he is independent with all mobilities and ambultion without AD Social History Household Members spouse Living Arrangements House Number of Floors (Floors) Two Floors Number of Stairs To Enter/Railing? 1 step to enter the house 18 steps L rail ascending to bedroom level Home Environment Standard Height Toilet,Tub/ Shower Home Equipment Shower Seat with Backrest,Hand Held Shower,Grab Bars In Shower Additional Social History Comment Pt has an adjustable bed at home. pt works as a sterile processing technician M2 PT-IP Current Condition Start: 02/01/22 11:59 Freq: NEEDED Status: Discharge Protocol: Document 02/01/22 09:25 AB (Rec: 02/01/22 12:08 AB [id number]) Physical Therapy Current Condition Current Condition Evaluation Date 02/01/22 Treatment Diagnosis s/p C4-5, C7-T1 ACDF; difficulty in walking Onset Date 01/31/22 M3 PT-IP Subjective Start: 02/01/22 11:59 Freq: NEEDED Status: Discharge Protocol: Document 02/01/22 09:25 AB (Rec: 02/01/22 12:08 AB [id number]) Subjective Physical Therapy Visit Type Type Initial Evaluation Visit Start Time 09:25 Visit Stop Time 09:35 Total Visit Minutes 10 Number of BIOGEOGRAPHER Visits 0 Physical Therapy Visit Comments Patient Comments agreeable to do PT Therapy Pain Assessment Pain When Pain Assessed At Rest Pain Present Pain Present Pain Reported Location neck Intensity 3 Scale Used Numeric (0 - 10) Pain Management Techniques Modification of Treatment,Re- positioning,Timing of Activity with Medications M4 PT-IP Mobility and Gait Start: 02/01/22 11:59 Freq: NEEDED Status: Discharge Protocol: Document 02/01/22 09:25 AB (Rec: 02/01/22 12:08 AB [id number]) PT-Bed Mobility Assessment Rolling Type of Rolling Log Rolling Level of Assist Independent Supine to Sit Supine to Sit Independent Sit to Supine Sit to Supine Independent PT-Transfer Assessment Sit to and From Stand Sit to and from Stand Independent Equipment Transfer Assistive Device None Orthotic/Prosthetic Devices or Brace: Yes Transfers Transfer Destination Bed Transfer Technique Stand Step Pivot Transfer Ability Level of Assist Standby Assistance Comments Mobility Comments pt is aware of his precautions . completed sit to stand from the chair independent and step transfer to bed without AD SBA. completed log roll bed mobility mod I. ambulated out in the hallway ~ 125 ft without AD SBA. No LOB. completed up/down platform step without AD SBA. completed up/down steps using L rail ascending SBA. pt ambulated back to his room SBA and sat on the chair. call light and table placed within reach. pt without further concerns. Gait Assessment Gait Gait Assistance Required: Standby Assistance Distance (Feet) 125 Able to Maintain Weight Bearing Status Yes During Gait Assistive Devices Assistive Device None Orthotic/Prosthetic Devices or Brace: Yes Gait Deviations General Gait Pattern Decreased Stride Length Factors Limiting Gait Function Factors Limiting Gait Function Decreased Activity Tolerance, Limited Range of Motion,Pain, Poor Balance Stair Climbing Assessment Evaluation Level of Assist On Stairs Standby Assistance Devices Stair Climbing Assistive Devices None,Left Railing Technique/Endurance Stair Climbing Direction Ascend and Descend Stair Climbing Technique Step to Step Number of Steps Climbed 3 Query Text: Stair Climbing Set # Repetitions (reps) 1 PT-Balance Assessment Sitting Balance and Reactions Static Sitting Balance Ability Normal Dynamic Sitting Balance Ability Normal Standing Balance and Reactions Static Standing Balance Ability Good Dynamic Standing Balance Ability Good Device Used without AD M5 PT-IP Objective Assessments Start: 02/01/22 11:59 Freq: NEEDED Status: Discharge Protocol: Document 02/01/22 09:25 AB (Rec: 02/01/22 12:08 AB [id number]) Orientation Orientation/Cognition Level of Alertness Alert Orientation Name,Place,Situation Language Function Ability No Deficits Noted Safety Awareness Understands Safety Issues Memory Description No Deficits Noted Gross Range of Motion Lower Extremity ROM Assessment Within Functional Limits Strength Lower Extremity Strength Assessment Within Functional Limits Muscle Tone Muscle Tone WNL Yes M6 PT-IP Treatment Start: 02/01/22 11:59 Freq: NEEDED Status: Discharge Protocol: Document 02/01/22 09:25 [facility] (Rec: 02/01/22 12:08 [facility] Physical Therapy Treatment Education Education Provided Precautions,Safety M7 PT-IP Assessment and Plan Start: 02/01/22 11:59 Freq: NEEDED Status: Discharge Protocol: Document 02/01/22 09:25 AB (Rec: 02/01/22 12:08 AB [id number]) PT Summary Assessment and Plan Potential Rehabilitation Potential Good Status of Condition at Evaluation Stable Summary Impairments Pain,ROM,Strength,Balance,Bed Mobility,Transfers,Gait, Activity Tolerance Assessment Summary pt requiring SBA with mobility without AD and plans to go home and spouse to assist him. pt may go home when medically stable. Goals Bed Mobility Goal Independent Transfer Goal Independent Gait Goal Independent Gait Distance 300 Other Goals up/down 1 step Independent without AD up/down 18 steps L rail mod I Days to Meet Goals 3 Frequency of Treatment Frequency Of Treatment Twice a Day Treatment Plan Physical Therapy Treatment Plan Bed Mobility Training,Transfer Training,Gait Training, Therapeutic Exercise,Balance Retraining,Post Op Education, Discharge Planning,Hot or Cold Pack,Neuromuscular Re-ed, Coordination Retraining,Manual Therapy Precautions Cervical Spine Precautions Soft Collar for Comfort,No Heavy Lifting,Log Roll Recommendations To Nursing Amount of Assist Needed Standby Assistance Discharge Recommendations PT Discharge Recommendations Home with Assistance Transportation Needs at Discharge Private Vehicle
== END 2022-02-01 11:30 | disposition home or self-care (01) | DRG 473 ==
PROVIDERS: Admitting Provider Orthopaedic Surgery Orthopaedic Surgery of the Spine; Referring Provider Orthopaedic Surgery Orthopaedic Surgery of the Spine; Visit Provider Orthopaedic Surgery Orthopaedic Surgery of the Spine
PROC: 0RG10A0 Fusion of Cervical Vertebral Joint with Interbody Fusion Device, Anterior Approach, Anterior Column, Open Approach (ICD-10-PCS; principal; 2022-01-31 12:15)
DX: M47.22 Other spondylosis with radiculopathy, cervical region (principal); M48.02 Spinal stenosis, cervical region; M48.03 Spinal stenosis, cervicothoracic region; K21.9 Gastro-esophageal reflux disease without esophagitis; F32.A Depression, unspecified; I10 Essential (primary) hypertension; Z87.891 Personal history of nicotine dependence; Z20.822 Contact with and (suspected) exposure to COVID-19; Z98.1 Arthrodesis status
CPT/HCPCS: 72040; 76000; 87635; 97161; 97165; C9803; C1713; C9290; J0171; J0690; J1100; J1170; J2250; J2704; J3010

== ENCOUNTER 2022-02-06 09:47 | Emergency (ER) | payer OTHER, SELFPAY ==
[2022-01-31 16:38] VITALS: BMI 28.1
[2022-02-06 10:05] VITALS: BP 156/96; PULSE 86; RESP 20; TEMP 37; O2SAT 99; BMI 29.0
--- NOTE | 2022-02-06 10:30 | PC.NURSE ---
pt concerned for infection or post op issues. he is sweating and in more pain.
--- NOTE | 2022-02-06 11:21 | DI.MRI.S_ITS ---
PROCEDURE: MR CERVICAL SPINE WO/W CON INDICATIONS: post laminectomy 01/31. fever, pain, new RUE weakness. TECHNIQUE: Noncontrast sagittal T1 spin echo and T2 fast spin echo, sagittal STIR, foraminal oblique sagittal T2 fast spin echo, axial gradient echo or T2 fast spin echo through the cervical spine. After the administration of contrast, axial and sagittal T1 spin echo with fat saturation through the cervical spine. COMPARISON: [facility] MR, MR CERVICAL SPINE WITHOUT CONTRAST, 08/17/2021, 12:47. [facility], CR, XR CERVICAL SPINE 2V OR 3V, 01/31/2022, 14:11. FINDINGS: Image quality: Exam is limited secondary to patient motion as well as susceptibility artifact. Anterior fusion is present from C4 through T1 with multilevel interval posterior laminectomy. There is thickening and abnormal enhancement within the prevertebral soft tissues from level of C2-3 through T2 with greatest AP dimension measuring approximately 2.2 cm. There is abnormal enhancement as well as rim enhancing presumed fluid within the right anterior neck at the level of the sternocleidomastoid muscle measuring approximately 2.7 x 1.6 cm. This extends posteriorly to the immediate prevertebral space most predominantly from the level of C5 through T2. Delineation is markedly limited secondary to artifact of both motion and surgical hardware. In addition, there is slight mass effect on the airway. There is overall appearance of multilevel spinal stenosis appearing slightly worse compared to prior exam. IMPRESSION: Markedly limited exam secondary to motion as well as artifact. Areas of increased enhancing lower right neck anterior soft tissues with enhancing apparent fluid collection extending posterior to the prevertebral space is noted at multiple levels throughout the surgical range as described above suggestive of abscess. Interval postsurgical changes demonstrating thickening and abnormal enhancement within the anterior neck soft tissues extending to the immediate prevertebral tissues. Overall appearance is suggestive of presence of abscess. The above findings were discussed with Dr. Tammie Waldron on 02/06/2022 at 12:25 p.m. Dictated by: Jeannette Mauricio M.D. on 02/06/2022 at 12:17 Approved by: Jeannette Mauricio M.D. on 02/06/2022 at 12:27
[2022-02-06 12:05] LABS: Add Manual Diff / Slide Review NO; Basophils Absolute Auto 0 /uL (0-100); Basophils Percent Auto 0.5 % (0-2); Eosinophils Absolute Auto 400 /uL (0-450); Eosinophils Percent Auto 4.1 % (2-4); Hemoglobin 15.3 g/dL (13.5-17.5); Lymphocytes Absolute Auto 900 /uL (1100-4500); Lymphocytes Percent Auto 8.5 % (25-40); Mean Corpuscular HGB Conc 34.8 % (30-36); Mean Corpuscular Hemoglobin 30.8 PG (26-34); Mean Corpuscular Volume 88.5 fL (80-100); Monocytes Absolute Auto 1300 /uL (0-900); Neutrophils Absolute Auto 7500 /uL (1500-7000); Neutrophils Percent Auto 73.9 % (50-75); Platelet Count 268 X10^3/uL (150-400); Red Blood Cell Count 4.96 X10^6/uL (4.5-5.9); Red Cell Distribution Width 12.7 % (11.6-14.8); White Blood Cell Count 10.2 X10^3/uL (4.5-11.0)
[2022-02-06 12:20] LABS: Alanine Aminotransferase 29 IU/L (<50); Albumin 4.1 g/dL (3.5-5.0); Albumin Globulin Ratio 1.1 (1.0-2.8); Alkaline Phosphatase 73 U/L (38-126); Aspartate Aminotransferase 47 IU/L (17-59); BUN Creatinine Ratio 22.4 (6-22); Bilirubin Total 0.6 mg/dL (0.2-1.3); Blood Urea Nitrogen 15 mg/dL (9-20); Calcium 9.2 mg/dL (8.4-10.2); Carbon Dioxide 30 mmol/L (22-32); Chloride 95 mmol/L (98-107); Estimated Glomerular Filt Rate > 60 mL/min (>60); Globulin 3.6 g/dL (1.7-4.1); Glucose 96 mg/dL (70-100); HEMOLYSIS < 15 (0-50); Potassium 3.9 mmol/L (3.4-5.1); Sodium 133 mmol/L (137-145); Total Protein 7.7 g/dL (6.3-8.2)
[2022-02-06] MEDS: HYDROMORPHONE 1 MG INJ IV (12:33)
[2022-02-06] MEDS: cefTRIAXone 2,000 MG in SODIUM CHLORIDE 0.9% 100 ML 200 MG IV (12:33)
[2022-02-06] MEDS: DEXAMETHASONE 10 MG/ML VIAL IV (12:34)
--- NOTE | 2022-02-06 13:22 | ED.RECABL ---
HPI - Recheck/Abnormal Lab/Rx General Chief Complaint: Recheck/Abnormal Lab/Rx Stated Complaint: neck surgery, dr told to come to ED Time Seen by Provider: 02/06/22 10:12 Source: patient Mode of arrival: Ambulatory Related Data Home Medications Medication Instructions Recorded Confirmed aspirin 81 mg tablet,delayed 81 mg PO DAILY 09/07/20 01/31/22 release omeprazole 20 mg capsule,delayed 20 mg PO DAILY 09/07/20 01/31/22 release fluoxetine 20 mg capsule 20 mg PO DAILY 09/14/20 01/31/22 losartan 50 mg tablet 50 mg PO DAILY 09/14/20 01/31/22 Previous Rx's Medication Instructions Recorded acetaminophen 325 mg tablet 650 mg PO Q6HR PRN Pain, Mild 02/01/22 (1-3) #60 tabs hydroxyzine pamoate 25 mg capsule 25 mg PO Q4HR PRN Nausea And 02/01/22 Vomiting #20 caps oxycodone 5 mg tablet 10 mg PO Q3HR PRN Pain, Severe 02/01/22 (7-10) #60 tabs Allergies Allergy/AdvReac Type Severity Reaction Status Date / Time morphine Allergy Severe Anaphylaxis Verified 01/31/22 10:40 Patient History Medical History Depression HTN (hypertension) BEBETO (obstructive sleep apnea) Surgical History Hx of appendectomy Hx of fusion of cervical spine (09/14/20) Hx of hernia repair Social History household members: spouse Smoking Status: Former smoker alcohol intake: current Smoking Status: Former smoker alcohol intake frequency: 3 or more drinks per day Alcohol type: hard liquor Substance Use Type: marijuana Exam Initial Vital Signs Initial Vital Signs: Vital Signs Temperature 98.6 F 02/06/22 10:05 Pulse Rate 86 02/06/22 10:05 Respiratory Rate 20 02/06/22 10:05 Blood Pressure 156/96 H 02/06/22 10:05 Pulse Oximetry 99 02/06/22 10:05 Oxygen Delivery Method 02/06/22 10:05 Course Orders Ordered: ED Orders 02/06/22 11:21 MR cervical spine wo/w con Stat 02/06/22 11:23 COVID19 -Nasal RAPID/Pre-Proc Stat 02/06/22 11:44 Complete Blood Count AUTO DIFF Stat Comprehensive Metabolic Panel Stat 02/06/22 12:30 Blood Culture Stat Vancomycin HCl/Dextrose (Vancomycin) 1,500 mg in 300 mls @ 200 mls/hr IV NOW ONE Stop: 02/06/22 13:29 Discontinued Medications Dexamethasone (Dexamethasone 10 Mg/Ml Vial) 10 mg IV NOW ONE Stop: 02/06/22 11:23 Last Admin: 02/06/22 12:34 Dose: 10 mg Documented By: BT Hydromorphone HCl (Hydromorphone 1 Mg Inj) 1 mg IV NOW ONE Stop: 02/06/22 11:23 Last Admin: 02/06/22 12:33 Dose: 1 mg Documented By: BT Ceftriaxone Sodium 2,000 mg/ (Sodium Chloride) 100 mls @ 200 mls/hr IV NOW ONE Stop: 02/06/22 11:23 Last Admin: 02/06/22 12:33 Dose: 200 mls/hr Documented By: SARAH Vancomycin HCl (Vancomycin Per Pharmacy) 1 request MISC NOW ONE Stop: 02/06/22 11:23 Vital Signs Vital signs: Vital Signs - 8 hr 02/06/22 10:05 Temperature 98.6 F Pulse Rate 86 Respiratory Rate 20 Blood Pressure 156/96 H Pulse Oximetry 99 Oxygen Delivery Method Room Air MDM - Recheck/Abnormal Lab/Rx Lab Data Result diagrams: 02/06/22 11:44 02/06/22 11:44 Labs: Lab Results 02/06/22 02/06/22 Range/Units 11:44 11:44 WBC 10.2 (4.5-11.0) X10^3/uL RBC 4.96 (4.5-5.9) X10^6/uL Hgb 15.3 (13.5-17.5) g/dL Hct 44.0 (41-53) % MCV 88.5 (80-100) fL MCH 30.8 (26-34) PG MCHC 34.8 (30-36) % RDW 12.7 (11.6-14.8) % Plt Count 268 (150-400) X10^3/uL Neut % (Auto) 73.9 (50-75) % Lymph % (Auto) 8.5 L (25-40) % [place] % (Auto) 13.0 (3-14) % Eos % (Auto) 4.1 H (2-4) % Baso % (Auto) 0.5 (0-2) % Neut # (Auto) 7500 H (2450-0402) /uL Lymph # (Auto) 900 L (6179-2059) /uL [place] # (Auto) 1300 H (0-900) /uL Eos # (Auto) 400 (0-450) /uL Baso # (Auto) 0 (0-100) /uL Sodium 133 L (137-145) mmol/L Potassium 3.9 (3.4-5.1) mmol/L Chloride 95 L (98-107) mmol/L Carbon Dioxide 30 (22-32) mmol/L BUN 15 (9-20) mg/dL Creatinine 0.67 (0.66-1.25) mg/dL Estimated GFR > 60 (>60) mL/min BUN/Creatinine Ratio 22.4 H (6-22) Glucose 96 (70-100) mg/dL Calcium 9.2 (8.4-10.2) mg/dL Total Bilirubin 0.6 (0.2-1.3) mg/dL AST 47 (17-59) IU/L ALT 29 (<50) IU/L Alkaline Phosphatase 73 (38-126) U/L Total Protein 7.7 (6.3-8.2) g/dL Albumin 4.1 (3.5-5.0) g/dL Globulin 3.6 (1.7-4.1) g/dL Albumin/Globulin Ratio 1.1 (1.0-2.8) Discharge Plan Departure Prescriptions: No Action acetaminophen 325 mg Tablet 650 mg PO Q6HR PRN (Reason: Pain, Mild (1-3)) Qty: 60 0RF oxycodone 5 mg Tablet 10 mg PO Q3HR PRN (Reason: Pain, Severe (7-10)) Qty: 60 0RF hydroxyzine pamoate 25 mg Capsule 25 mg PO Q4HR PRN (Reason: Nausea And Vomiting) Qty: 20 0RF aspirin 81 mg Tablet,Delayed Release (Dr/Ec) 81 mg PO DAILY omeprazole 20 mg Capsule,Delayed Release(Dr/Ec) 20 mg PO DAILY fluoxetine 20 mg capsule 20 mg PO DAILY losartan 50 mg tablet 50 mg PO DAILY Referrals: Miscellaneous,Doctor, [Primary Care Provider] -
[2022-02-06] MEDS: VANCOMYCIN 1,500 MG/300 ML PIGGYBACK 200 MG IV (13:31)
[2022-02-06] MEDS: HYDROMORPHONE 0.5 MG INJ 1 MG IV (13:41)
--- NOTE | 2022-02-06 13:48 | ED_ITS ---
HPI - General Adult General Chief complaint: Recheck/Abnormal Lab/Rx Stated complaint: neck surgery, dr told to come to ED Time Seen by Provider: 02/06/22 10:12 Source: patient Mode of arrival: Ambulatory History of Present Illness HPI narrative: 56-year-old gentleman with a history of hypertension and reflux disease significant cervical spinal stenosis who underwent cervical spine surgery on 01/31. He had been doing well postoperatively until the . He was seen in clinic started on Keflex and has appointment to follow-up next week. In the meantime he has had progressive weakness in the right upper extremity is now unable to abduct the arm is having pain shooting into the deltoid and paresthesias into the right hand. He has also had fevers with drenching sweats and chills. He does not complain of headache, chest pain, cough, vomiting, diarrhea, abdominal pain. Related Data Home Medications Medication Instructions Recorded Confirmed aspirin 81 mg tablet,delayed 81 mg PO DAILY 09/07/20 01/31/22 release omeprazole 20 mg capsule,delayed 20 mg PO DAILY 09/07/20 01/31/22 release fluoxetine 20 mg capsule 20 mg PO DAILY 09/14/20 01/31/22 losartan 50 mg tablet 50 mg PO DAILY 09/14/20 01/31/22 Previous Rx's Medication Instructions Recorded acetaminophen 325 mg tablet 650 mg PO Q6HR PRN Pain, Mild 02/01/22 (1-3) #60 tabs hydroxyzine pamoate 25 mg capsule 25 mg PO Q4HR PRN Nausea And 02/01/22 Vomiting #20 caps oxycodone 5 mg tablet 10 mg PO Q3HR PRN Pain, Severe 02/01/22 (7-10) #60 tabs Allergies Allergy/AdvReac Type Severity Reaction Status Date / Time morphine Allergy Severe Anaphylaxis Verified 01/31/22 10:40 Review of Systems Review of Systems Narrative: Remainder of complete review of systems is otherwise unremarkable except for that included in the HPI. Patient History Medical History Depression HTN (hypertension) BEBETO (obstructive sleep apnea) Surgical History Hx of appendectomy Hx of fusion of cervical spine (09/14/20) Hx of hernia repair Social History household members: spouse Smoking Status: Former smoker alcohol intake: current Smoking Status: Former smoker alcohol intake frequency: 3 or more drinks per day Alcohol type: hard liquor Substance Use Type: marijuana Exam Initial Vital Signs Initial Vital Signs: Vital Signs Temperature 98.6 F 02/06/22 10:05 Pulse Rate 86 02/06/22 10:05 Respiratory Rate 20 02/06/22 10:05 Blood Pressure 156/96 H 02/06/22 10:05 Pulse Oximetry 99 02/06/22 10:05 Oxygen Delivery Method 02/06/22 10:05 General: Healthy appearing, diaphoretic and appears to be hurting but Able to give a complete and coherent history. Well-nourished well-developed HEENT: Moist mucous membranes, normal sclera with reactive pupils, Neck: Cervical surgical dressings in place on the right side with no significant superficial abnormalities. Tender along the entire cervical spine. Respiratory: Lungs are clear to auscultation, no wheezing no rales no rhonchi. Full and symmetrical air movement Cardiac: Regular rate and rhythm no murmurs no bruits Abdomen: Soft, nontender, good bowel tones, no flank pain Skin: Warm and dry, no rashes Neurologic: Decreased sensation over the trapezius and into the deltoid with inability to abduct actively, no pain with passive abduction. Tingling sensation into the entire hand in a glove distribution. Extremities: No trauma, well perfused Psych: Cooperative, appropriate insight and affect Course Orders Ordered: ED Orders 02/06/22 11:21 MR cervical spine wo/w con Stat 02/06/22 11:44 Complete Blood Count AUTO DIFF Stat Comprehensive Metabolic Panel Stat 02/06/22 12:30 Blood Culture Stat 02/06/22 13:20 COVID19 -Nasal RAPID/Pre-Proc Stat 02/08/22 01:00 Vancomycin Trough Stat 02/08/22 04:00 Vancomycin Peak Stat Hydromorphone HCl (Hydromorphone 0.5 Mg Inj) 1 mg IV Q15MIN PRN PRN Reason: Pain, Last Admin: 02/06/22 13:41 Dose: 1 mg Documented By: RL Vancomycin HCl/Dextrose (Vancomycin) 1,500 mg in 300 mls @ 200 mls/hr IV Q12H RUPA Vancomycin HCl (Vancomycin Trough) 1 request [facility] 0100 ONE Stop: 02/08/22 01:01 Vancomycin HCl (Vancomycin Peak) 1 request [facility] 0400 ONE Stop: 02/08/22 04:01 Discontinued Medications Dexamethasone (Dexamethasone 10 Mg/Ml Vial) 10 mg IV NOW ONE Stop: 02/06/22 11:23 Last Admin: 02/06/22 12:34 Dose: 10 mg Documented By: BT Hydromorphone HCl (Hydromorphone 1 Mg Inj) 1 mg IV NOW ONE Stop: 02/06/22 11:23 Last Admin: 02/06/22 12:33 Dose: 1 mg Documented By: BT Hydroxyzine Pamoate (Hydroxyzine Pamoate 25 Mg Capsule) 50 mg PO NOW ONE Stop: 02/06/22 14:36 Ceftriaxone Sodium 2,000 mg/ (Sodium Chloride) 100 mls @ 200 mls/hr IV NOW ONE Stop: 02/06/22 11:23 Last Infusion: 02/06/22 13:25 Dose: 0 mls/hr Documented By: Admin: 02/06/22 12:33 Dose: 200 mls/hr Documented By: SARAH Vancomycin HCl/Dextrose (Vancomycin) 1,500 mg in 300 mls @ 200 mls/hr IV NOW ONE Stop: 02/06/22 13:29 Last Infusion: 02/06/22 15:18 Dose: 0 mls/hr Documented By: Admin: 02/06/22 13:31 Dose: 200 mls/hr Documented By: MEAGHAN Vancomycin HCl (Vancomycin Per Pharmacy) 1 request [facility] NOW ONE Stop: 02/06/22 11:23 Last Admin: 02/06/22 13:38 Dose: Not Given Documented By: MEAGHAN Vital Signs Vital signs: Vital Signs - 8 hr 02/06/22 10:05 Temperature 98.6 F Pulse Rate 86 Respiratory Rate 20 Blood Pressure 156/96 H Pulse Oximetry 99 Oxygen Delivery Method Room Air Medical Decision Making Lab Data Result diagrams: 02/06/22 11:44 02/06/22 11:44 Labs: Lab Results 02/06/22 02/06/22 02/06/22 Range/Units 11:44 11:44 13:20 WBC 10.2 (4.5-11.0) X10^3/uL RBC 4.96 (4.5-5.9) X10^6/uL Hgb 15.3 (13.5-17.5) g/dL Hct 44.0 (41-53) % MCV 88.5 (80-100) fL MCH 30.8 (26-34) PG MCHC 34.8 (30-36) % RDW 12.7 (11.6-14.8) % Plt Count 268 (150-400) X10^3/uL Neut % (Auto) 73.9 (50-75) % Lymph % (Auto) 8.5 L (25-40) % [place] % (Auto) 13.0 (3-14) % Eos % (Auto) 4.1 H (2-4) % Baso % (Auto) 0.5 (0-2) % Neut # (Auto) 7500 H (8605-5405) /uL Lymph # (Auto) 900 L (1469-6583) /uL [place] # (Auto) 1300 H (0-900) /uL Eos # (Auto) 400 (0-450) /uL Baso # (Auto) 0 (0-100) /uL Sodium 133 L (137-145) mmol/L Potassium 3.9 (3.4-5.1) mmol/L Chloride 95 L (98-107) mmol/L Carbon Dioxide 30 (22-32) mmol/L BUN 15 (9-20) mg/dL Creatinine 0.67 (0.66-1.25) mg/dL Estimated GFR > 60 (>60) mL/min BUN/Creatinine Ratio 22.4 H (6-22) Glucose 96 (70-100) mg/dL Calcium 9.2 (8.4-10.2) mg/dL Total Bilirubin 0.6 (0.2-1.3) mg/dL AST 47 (17-59) IU/L ALT 29 (<50) IU/L Alkaline Phosphatase 73 (38-126) U/L Total Protein 7.7 (6.3-8.2) g/dL Albumin 4.1 (3.5-5.0) g/dL Globulin 3.6 (1.7-4.1) g/dL Albumin/Globulin Ratio 1.1 (1.0-2.8) SARS-CoV-2 (PCR) Negative (Negative) Imaging Data MRI c spine: Radiologist's Impression: FINDINGS:? Image quality:? Exam is limited secondary to patient motion as well as susceptibility artifact. ? Anterior fusion is present from C4 through T1 with multilevel interval posterior laminectomy. ? There is thickening and abnormal enhancement within the prevertebral soft tissues from level of C2-3 through T2 with greatest AP dimension measuring approximately 2.2 cm.? There is abnormal enhancement as well as rim enhancing presumed fluid within the right anterior neck at the level of the sternocleidomastoid muscle measuring approximately 2.7 x 1.6 cm.? This extends posteriorly to the immediate prevertebral space most predominantly from the level of C5 through T2.? Delineation is markedly limited secondary to artifact of both motion and surgical hardware.? In addition, there is slight mass effect on the airway. ? There is overall appearance of multilevel spinal stenosis appearing slightly worse compared to prior exam. ? ? IMPRESSION:? ? Markedly limited exam secondary to motion as well as artifact. ? Areas of increased enhancing lower right neck anterior soft tissues with enhancing apparent fluid collection extending posterior to the prevertebral space is noted at multiple levels throughout the surgical range as described above suggestive of abscess. ? Interval postsurgical changes demonstrating thickening and abnormal enhancement within the anterior neck soft tissues extending to the immediate prevertebral tissues.? Overall appearance is suggestive of presence of abscess.? ? ? The above findings were discussed with Dr. Tammie Waldron on 02/06/2022 at 12:25 p.m. ? ? ? Dictated by: Jeannette Mauricio M.D. on 02/06/2022 at 12:17 ? ? [facility] Narrative Medical decision making narrative: 56-year-old gentleman who is now 7 days post anterior approach multilevel cer vical laminectomy with prior surgical revision and new hardware placed who presents with 4 days of increasing pain now with progressive neurologic symptoms in the right upper extremity with fevers and chills an MRI consistent with abnormal enhancement within the anterior neck soft tissue extending to the immediate prevertebral tissues suggestive of an abscess. Care is reviewed with Dr. Chavira, orthopedist on-call. He will discussed care with Dr. Monson with anticipation of admission with antibiotics. Pain is been relatively well controlled with IV narcotics but he continues to have significant muscle spasm. 230pm Dr. Chavira returned call, after reviewing with other neurosurgical colleague felt that the MRI was consistent with postoperative swelling but not necessarily infection. Patient is not have any difficulty with swallowing. Dr. Chavira will come in and evaluate the patient figure out next appropriate steps in his treatment. 245 Dr Monson [place]. [place]. In describing the MRI results he feels that the findings are consistent with p ostsurgical findings rather than abscess particularly in the absence of a measured fever despite the diaphoresis. In the absence of described nerve compression on the MRI he does not have a explanation for the deltoid weakness. He will communicate with Dr. Chavira who, as mentioned above is coming into examine patient. 430 patient was seen and evaluated by Dr. Chavira in the emergency department. Dr. Chavira believes he is safe for home discharge at this time. Does an appointment scheduled with Dr. Monson tomorrow in clinic. Patient has antibiotics, Keflex, oxycodone, 5 mg and Vistaril available to him at home. He is given a sling for comfort and that does help significantly with the right shoulder pain. He is safe for discharge home Discharge Plan Departure Patient Disposition: Home Clinical Impression: Post-op pain, Neuropathy, cervical (radicular) Activity Restrictions/Additional Instructions: Thank you for coming in today Your examined by Dr. Chavira, orthopedic surgeon. In reviewing labs, your MRI and your clinical exam he feels that your pain is postoperative related and is not likely outside sales representative of abscess. You do have an appointment tomorrow with your surgeon and you do need to keep this. You can continue to use 10 mg of oxycodone every 4 hours as needed for pain. The hydroxyzine will be helpful for muscle spasm. Please try keeping the shoulder more immobilized with a sling to see if this is also helpful with overall pain. If you find that you are getting worse or develop any new symptoms, please feel free to return to the emergency department for further evaluation. Prescriptions: No Action acetaminophen 325 mg Tablet 650 mg PO Q6HR PRN (Reason: Pain, Mild (1-3)) Qty: 60 0RF oxycodone 5 mg Tablet 10 mg PO Q3HR PRN (Reason: Pain, Severe (7-10)) Qty: 60 0RF hydroxyzine pamoate 25 mg Capsule 25 mg PO Q4HR PRN (Reason: Nausea And Vomiting) Qty: 20 0RF aspirin 81 mg Tablet,Delayed Release (Dr/Ec) 81 mg PO DAILY omeprazole 20 mg Capsule,Delayed Release(Dr/Ec) 20 mg PO DAILY fluoxetine 20 mg capsule 20 mg PO DAILY losartan 50 mg tablet 50 mg PO DAILY Referrals: Miscellaneous,Doctor, [Primary Care Provider] -
[2022-02-06 13:58] LABS: COVID19 -Nasal RAPID Negative (Negative)
--- NOTE | 2022-02-06 15:56 | PM.CN ---
History of Present Illness Consult details Date Patient Seen: 02/06/22 Time Patient Seen: 15:30 Chief complaint: neck surgery, dr told to come to ED Reason for consult: Shoulder weakness Narrative: 56 year old gentleman status post cervical spine surgery on the of this month. Been complaining of increasing pain to initially both shoulders but that this moment just the right shoulder. Also complaining of weakness and difficulty moving the right arm. Was seen by his operative surgeon to few days ago in clinic. At that point patient was mainly complaining of sweating is as well as shoulder pain. Still having some issues with sweating but the shoulder pain seems to increase mainly just on the right side. Patient was afebrile in the ER as well as a normal white count. Patient had a MRI of his cervical spine. Meds Home Medications and Allergies Home Medications Medication Instructions Recorded Confirmed Type aspirin 81 mg tablet,delayed 81 mg PO DAILY 09/07/20 01/31/22 History release omeprazole 20 mg capsule,delayed 20 mg PO DAILY 09/07/20 01/31/22 History release fluoxetine 20 mg capsule 20 mg PO DAILY 09/14/20 01/31/22 History losartan 50 mg tablet 50 mg PO DAILY 09/14/20 01/31/22 History acetaminophen 325 mg tablet 650 mg PO Q6HR PRN Pain, Mild 02/01/22 Rx (1-3) #60 tabs hydroxyzine pamoate 25 mg capsule 25 mg PO Q4HR PRN Nausea And 02/01/22 Rx Vomiting #20 caps oxycodone 5 mg tablet 10 mg PO Q3HR PRN Pain, Severe 02/01/22 Rx (7-10) #60 tabs Allergies Allergy/AdvReac Type Severity Reaction Status Date / Time morphine Allergy Severe Anaphylaxis Verified 01/31/22 10:40 Exam Vital Signs (past 8 hours): - 02/06/22 10:05 Temperature 98.6 F Pulse Rate 86 Respiratory Rate 20 Blood Pressure 156/96 H Pulse Oximetry 99 Oxygen Delivery Method Room Air Oxygen Delivery Method Room Air Narrative Exam Narrative: On physical exam patient is alert and oriented x3. No apparent distress. No sign of any infectious process to his surgical incision. Normal range of motion to the left shoulder. Normal deltoid function to his right shoulder. Is showing signs of some weakness in his right rotator cuff particularly in his supraspinatus and a lesser extent infraspinatus. Normal subscapularis strength. No sign of any glenohumeral joint instability. Objective Labs Result Diagrams: 02/06/22 11:44 02/06/22 11:44 Labs: Laboratory Results - last 24 hr 02/06/22 02/06/22 02/06/22 11:44 11:44 13:20 WBC 10.2 RBC 4.96 Hgb 15.3 Hct 44.0 MCV 88.5 MCH 30.8 MCHC 34.8 RDW 12.7 Plt Count 268 Neut % (Auto) 73.9 Lymph % (Auto) 8.5 L [place] % (Auto) 13.0 Eos % (Auto) 4.1 H Baso % (Auto) 0.5 Neut # (Auto) 7500 H Lymph # (Auto) 900 L [place] # (Auto) 1300 H Eos # (Auto) 400 Baso # (Auto) 0 Sodium 133 L Potassium 3.9 Chloride 95 L Carbon Dioxide 30 BUN 15 Creatinine 0.67 Estimated GFR > 60 BUN/Creatinine Ratio 22.4 H Glucose 96 Calcium 9.2 Total Bilirubin 0.6 AST 47 ALT 29 Alkaline Phosphatase 73 Total Protein 7.7 Albumin 4.1 Globulin 3.6 Albumin/Globulin Ratio 1.1 SARS-CoV-2 (PCR) Negative [facility] Medical History Depression HTN (hypertension) BEBETO (obstructive sleep apnea) Surgical History Hx of appendectomy Hx of fusion of cervical spine (09/14/20) Hx of hernia repair Social History household members: spouse Tobacco & Substance Use Smoking Status: Former smoker alcohol intake: current Assessment & Plan Assessment & Plan narrative: Patient is status post cervical spine surgery on the was some complaints of right shoulder pain. No sign of any infectious process on his lab work or his MRI. Feel that patient would benefit from a muscle relaxer to help with his right shoulder pain. Patient will be seen in clinic next week for repeat evaluation. This was already set up from his last visit on the . Time Spent With Patient Critical Care time: I spent a total of [] minutes of critical care time on this patient's care today; this time is exclusive of procedural time.
[2022-02-06 16:42] VITALS: BP 148/88; PULSE 67; RESP 16; TEMP 36.7; O2SAT 97
== END 2022-02-06 16:45 | disposition home or self-care (01) ==
PROVIDERS: Emergency Provider Emergency Medicine
DX: G89.18 Other acute postprocedural pain (principal); M54.12 Radiculopathy, cervical region; Z20.822 Contact with and (suspected) exposure to COVID-19
CPT/HCPCS: 36415; 72156; 80053; 85025; 87040; 87635; 96365; 96366; 96367; 96375; 96376; 99284; C9803; J0696; J1100; J1170

== ENCOUNTER → 2022-02-28 19:49 | Outpatient (CLI) | payer OTHER, SELFPAY ==
[2022-01-31 16:38] VITALS: BMI 28.1
--- NOTE | 2022-02-28 19:55 | DI.MRI.S_ITS ---
PROCEDURE: MR SHOULDER RT WO CON INDICATIONS: PAIN TO RT. SHOULDER TECHNIQUE: Noncontrast oblique coronal T2 fast spin echo with fat saturation, oblique sagittal T1 spin echo and T2 fast spin echo with fat saturation, axial T1 spin echo and T2 fast spin echo with fat saturation through the shoulder. COMPARISON: None. FINDINGS: Image quality: Excellent. Rotator cuff: There is moderate supraspinatus and subscapularis tendinosis. Suspect partial thickness tear of the distal supraspinatus and subscapularis tendons involving the footprint. No tendon rupture or muscle atrophy. Mild infraspinatus tendinosis. There is isolated atrophy of the teres minor muscle. Bones and bursae: No bone marrow contusions or fractures. There is moderate acromioclavicular and glenohumeral joint degeneration. The acromion demonstrates conventional anatomy, without an os acromiale. No pathologic subacromial-subdeltoid or subcoracoid bursal fluid is present. Capsule and soft tissues: There is degenerative fraying of the superior labrum and anterior inferior labrum. The long head of the biceps tendon demonstrates normal location and morphology. Mild tendinosis of intra-articular portion of the the long head of the biceps tendon. The rotator interval appears normal, without fibrosis. The coracohumeral ligament is normal in thickness. IMPRESSION: 1. Moderate supraspinatus and subscapularis tendinosis, and mild infraspinatus tendinosis. No tendon rupture or rotator cuff muscle atrophy. 2. Moderate acromioclavicular and glenohumeral joint degeneration. 3. Degenerative labral fraying. 4. Isolated tears muscle atrophy. 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 Dictated by: Rekha Serrano M.D. on 03/01/2022 at 12:52 Approved by: Rekha Serrano M.D. on 03/01/2022 at 13:25
--- NOTE | 2022-02-28 19:55 | DI.MRI.S_ITS ---
PROCEDURE: MR SHOULDER LT WO CON INDICATIONS: PAIN TO LT. SHOULDER TECHNIQUE: Noncontrast oblique coronal T2 fast spin echo with fat saturation, oblique sagittal T1 spin echo and T2 fast spin echo with fat saturation, axial T1 spin echo and T2 fast spin echo with fat saturation through the shoulder. COMPARISON: [facility], MR, MR SHOULDER RT WO CON, 02/28/2022, 20:05. [facility], CR, XR SHOULDER 2+ VIEWS LEFT, 11/19/2021, 11:43. [facility], MR, MR SHOULDER LEFT WITHOUT CONTRAST, 12/06/2021, 13:48. [facility], CR, XR SHOULDER 2+ VIEWS BILATERAL, 02/10/2022, 9:48. FINDINGS: Image quality: Excellent. Rotator cuff: There is partial-thickness tear of the infraspinatus tendon at the musculotendinous junction. There is isolated infraspinatus muscle edema, most likely secondary to superimposed muscle strain. There is no mass or cyst(s) at the spinoglenoid or suprascapular notch. There is mild supraspinatus tendinosis involving the footprint. Moderate subscapularis tendinosis. There is partial-thickness tear along both articular and bursal surface. No tendon rupture. No infraspinatus muscle atrophy. Bones and bursae: No bone marrow contusions or fractures. Prominent cystic changes in humeral head anteriorly. There is [id number] acromioclavicular and glenohumeral joint degeneration. The acromion demonstrates conventional anatomy, without an os acromiale. No pathologic subacromial-subdeltoid or subcoracoid bursal fluid is present. Capsule and soft tissues: There is degenerative fraying of the superior labrum. The long head of the biceps tendon demonstrates normal location and morphology. The rotator interval appears normal, without fibrosis. The coracohumeral ligament is normal in thickness. IMPRESSION: 1. Partial-thickness tear of the infraspinatus tendon at the musculotendinous junction. There is isolated edema in the infraspinatus muscle most likely secondary to concomitant muscle strain. Denervation injury is a differential diagnosis. If clinical symptoms persist, a repeat MRI with intravenous contrast would be helpful. 2. Moderate subscapularis tendinosis with partial thickness tear. Prominent subchondral cyst formation in humeral head and is the subscapularis tendon attachment. 3. Mild supraspinatus tendinosis. 4. [id number] acromioclavicular and glenohumeral joint degeneration. 5. Degenerative labral fraying. Dictated by: Rekha Serrano M.D. on 03/01/2022 at 13:39 Approved by: Rekha Serrano M.D. on 03/02/2022 at 11:59
== END ==
PROVIDERS: Referring Provider Physician Assistant; Visit Provider Physician Assistant
DX: M75.112 Incomplete rotator cuff tear or rupture of left shoulder, not specified as traumatic (principal); M19.012 Primary osteoarthritis, left shoulder; M19.011 Primary osteoarthritis, right shoulder; M25.511 Pain in right shoulder; M25.512 Pain in left shoulder
CPT/HCPCS: 73221